=== PATIENT | female | born 1980 | race Caucasian/White ===

== ENCOUNTER → 2017-03-16 | Outpatient (CLI) | payer OTHER ==
[~2017-03-16] MED LIST: AMIT25TA9 PO; CETI10CA PO; CETI10TA20 PO; CIPR500T4 PO; HYDR-3729 PO; HYDR-3816 PO; IBUP-1780 PO; LEVO250T11 PO; METR500T21 PO; NITR-65 PO; OXYB10TA6 PO; PHEN-640 PO; RANI150T15 PO; TAMS0.4C98 PO; [UNRECOGNIZED DRUG - CODE] PO
== END ==
LOC: RAD 14:37
PROVIDERS: ATTEND Urology
DX: Q62.0 Congenital hydronephrosis (principal); Z53.29 Procedure and treatment not carried out because of patient's decision for other reasons

== ENCOUNTER → 2017-03-25 | Outpatient (CLI) | payer OTHER ==
[~2017-03-25] MED LIST changes: +CATHETER FLUSH 10 ML SYR IV PRN; +FUROSEMIDE 40 MG/4 ML INJ (LASIX) IVP ONE
--- NOTE | 2017-03-25 11:06 | Diagnostic Imaging Report ---
INDICATION: Congenital hydronephrosis Scintigraphic imaging is performed posteriorly over the kidneys, ureters and bladder after intravenous administration of 5.4 mCi technetium 99m MAG-3. Patient also received intravenous Lasix at the shelter point of the exam. Comparison is made to study of 03/06/2016. There is prompt perfusion to both kidneys. Peak activity occurs in the left kidney after 540 seconds in the right kidney after 300. There is delay in excretion of activity from the left kidney similar to previous study with prompt washout from the right kidney. After Lasix administration, there is washout of activity from the left kidney as well indicating no obstruction. IMPRESSION: Prolonged accumulation and delayed excretion of activity from the left kidney which may be related to hydronephrosis. There is no evidence of obstruction after Lasix administration. Overall, findings are similar to the previous study. Dictated by: Dictated on workstation # [id number]
== END ==
LOC: CARD 08:55
PROVIDERS: ATTEND Urology
DX: Q62.0 Congenital hydronephrosis (principal)
CPT/HCPCS: 78708

== ENCOUNTER 2017-05-03 07:16 | Emergency (ER) | payer SELFPAY ==
[~2017-05-03] VITALS: Ht 152.4 cm; Wt 75.3 kg
[~2017-05-03 07:16] MED LIST changes: -CATHETER FLUSH 10 ML SYR IV PRN; -FUROSEMIDE 40 MG/4 ML INJ (LASIX) IVP ONE
--- OUTSIDE RECORDS SUMMARY | 2017-05-03 07:23 | XMS REPORT ---
Author FIFI Aparicio Organization eClinicalWorks Address Unknown Phone Unavailable Care Team Providers Care Patcher Helper Name Role Phone FIFI BARBOSA CP Unavailable Allergies No Known Allergies Problems Problem Type Condition Code Onset Dates Condition Status Assessment Irritability R45.4 Active Assessment Seasonal allergic rhinitis, unspecified allergic rhinitis trigger J30.2 Active Assessment Obesity (BMI 30.0-34.9) E66.9 Active Problem Seasonal allergic rhinitis, unspecified allergic rhinitis trigger J30.2 Active Problem S/P hysterectomy Z90.710 Active Problem Adjustment disorder, unspecified type F43.20 Active Problem 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 Assessment S/P hysterectomy Z90.710 Active Problem Obesity (BMI 30.0-34.9) E66.9 Active Problem Irritability R45.4 Active Medications No Known Medications Procedures Procedure Coding System Code Date GONADOTROPIN (FSH) CPT-4 44456 Feb 29, 2016 COMPLETE CBC W/AUTO DIFF WBC CPT-4 36722 Feb 29, 2016 ASSAY THYROID STIM HORMONE CPT-4 01145 Feb 29, 2016 COMPREHEN METABOLIC PANEL CPT-4 19187 Feb 29, 2016 LIPID PANEL CPT-4 13460 Feb 29, 2016 VENIPUNCT, ROUTINE* CPT-4 07417 Feb 29, 2016 Results Name Result Date Reference Range Unit Abnormality Flag ROUTINE VENIPUNCTURE Summary Purpose eClinicalWorks Submission
--- OUTSIDE RECORDS SUMMARY | 2017-05-03 07:23 | XMS REPORT ---
Author FIFI Aparicio [facility] eClinicalWorks Address Unknown Phone Unavailable Care Team Providers Care Medical Billing Coder Name Role Phone FIFI BARBOSA CP Unavailable Allergies No Known Allergies Problems Problem Type Condition Code Onset Dates Condition Status Problem Irregular menstrual cycle 626.4 Active Assessment Encounter for Depo-Provera contraception Z30.42 Active Problem Esophageal reflux 530.81 Active Medications No Known Medications Procedures Procedure Coding System Code Date DEPO PROVERA (150 MG/ML) CPT-4 J1050 May 24, 2015 THER/PROPH/DIAG INJ, SC/IM CPT-4 21401 May 24, 2015 URINE TEST CPT-4 00908 May 24, 2015 Results Name Result Date Reference Range Unit Abnormality Flag TEST, URINE (IN HOUSE) ----RESULTS neg [id number] ----Lot # [id number] ----Control pos [id number] ----Exp date [id number] Summary Purpose eClinicalWorks Submission
--- OUTSIDE RECORDS SUMMARY | 2017-05-03 07:23 | XMS REPORT ---
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
--- OUTSIDE RECORDS SUMMARY | 2017-05-03 07:23 | XMS REPORT ---
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
--- OUTSIDE RECORDS SUMMARY | 2017-05-03 07:23 | XMS REPORT ---
Author Author [facility] Address [address] [place] [address] Care Team Providers Care Hotel Sales Manager Name Role Phone FIFI BARBOSA Unavailable PROBLEMS Type Condition ICD9-CM Code [id number] Code Onset Dates Condition Status SNOMED Code Problem Obesity (BMI 30.0-34.9) E66.9 Active 788619311144269 Problem Anxiety associated with depression F41.8 Active 622170201 Problem Adjustment disorder, unspecified type F43.20 Active 60107092 Problem S/P hysterectomy Z90.710 Active 900814245 Problem Irritability R45.4 Active 93891473 Problem Seasonal allergic rhinitis, unspecified allergic rhinitis trigger J30.2 Active 691155713 Problem 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 285050665 ALLERGIES Substance Reaction Event Type Date Status Iodine Unknown Drug Allergy Jun, Active SOCIAL HISTORY Never Assessed PLAN OF CARE Activity Details Follow Up 6 Months Reason:irritability/effexor f/u VITAL SIGNS Height 60 in 2016-06-12 Weight 169.2 lbs 2016-06-12 Temperature 98.9 degrees Fahrenheit 2016-06-12 Heart Rate 112 bpm 2016-06-12 Respiratory Rate 16 2016-06-12 BMI 33.04 kg/m2 2016-06-12 Blood pressure systolic 126 mmHg 2016-06-12 Blood pressure diastolic 82 mmHg 2016-06-12 MEDICATIONS Medication Instructions Dosage Frequency Start Date End Date Duration Status Zyrtec Allergy 10 MG Orally Once a day 1 tablet 24h Active Ranitidine HCl 150 mg 1 tablet by Oral route 2 times per day Do not fill until patient calls! Oct, Active Clindagel 1 % Externally Once a day 1 application to affected area 24h Jun, Active HydrOXYzine HCl 25 MG Orally every 8 hrs 1 tablet as needed 8h May, Active ProAir HFA 108 (90 Base) MCG/ACT Inhalation 3 times a day 2 puffs as needed 8h Jun, Active Ibuprofen 800 mg take 1 tablet (800 mg) by oral route 3 times per day with food Apr, Active Augmentin 875-125 MG Orally every 12 hrs 1 tablet 12h Jun,Jun 10 day(s) Active Zyrtec-D Allergy & Congestion 5-120 MG Orally Once a day 1 tablet 24h Jan, Active Diflucan 100 mg Orally Once a day- if yeast symptoms develop 1 tablet Jun, Active Venlafaxine HCl 50 mg Orally Twice a day 1 tablet with food 12h May, Active RESULTS No Results PROCEDURES No Known procedures IMMUNIZATIONS No Known Immunizations MEDICAL (GENERAL) HISTORY Type Description Date Medical History endemetriosis Medical History Fibroid and ovarian cyst Medical History Pelvic junction obstruction- stent placed in the left ureter Surgical History Tonsillectomy and adenoids 1995 Surgical History [place] teeth 1997 Surgical History laproscopic surgery- endometriosis 1999 Surgical History section 2004, 2008 Surgical History hysterectomy still has ovaries 06/12/15 Surgical History pelvic junction obstruction surgery-[facility] 12/25/2015 Hospitalization History Surgery(s)/Childbirth(s) only
--- OUTSIDE RECORDS SUMMARY | 2017-05-03 07:23 | XMS REPORT ---
Author Author FIFI BARBOSA Organization eClinicalWorks Address Unknown Phone Unavailable Care Team Providers Care Breaker Layer Name Role Phone FIFI BARBOSA CP Unavailable Allergies No Known Allergies Problems Problem Type Condition Code Onset Dates Condition Status Problem Irregular menstrual cycle 626.4 Active Problem Esophageal reflux 530.81 Active Medications No Known Medications Results No Known Results Summary Purpose eClinicalWorks Submission
--- OUTSIDE RECORDS SUMMARY | 2017-05-03 07:23 | XMS REPORT ---
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
--- OUTSIDE RECORDS SUMMARY | 2017-05-03 07:23 | XMS REPORT ---
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 Zyrtec-D Allergy & Congestion [facility] [address] 5-120 MG Orally Once a day Jan 03, 2016 1 tablet Zyrtec Allergy [facility] [address]-01 10 MG Orally Once a day 1 tablet Clindagel [facility] [address]-79 1 % Externally Once a day Jun 28, 2015 1 application to affected area Procedures Procedure Coding System Code Date INTRAORL-PERIAPICAL 1 FILM 67590 CPT-4 D0220 Feb 18, 2016 LTD ORAL EVALUATION - PROBLEM FOCUS CPT-4 D0140 Feb 18, 2016 Vital Signs Date/Time: Feb 18, 2016 Blood Pressure Diastolic 83 mmHg Blood Pressure Systolic 121 mmHg Results No Known Results Summary Purpose eClinicalWorks Submission
--- OUTSIDE RECORDS SUMMARY | 2017-05-03 07:23 | XMS REPORT ---
Author FIFI Aparicio Organization eClinicalWorks Address Unknown Phone Unavailable Care Team Providers Care Environmental Emergencies Assistant Name Role Phone FIFI BARBOSA CP Unavailable Allergies No Known Allergies Problems Problem Type Condition Code Onset Dates Condition Status Problem Other ganglion and cyst of synovium, tendon, and bursa 727.49 Active Problem Irregular menstrual cycle 626.4 Active Problem Acute upper respiratory infections of unspecified site 465.9 Active Problem Postnasal drip 784.91 Active Problem Abdominal pain, generalized 789.07 Active Problem Esophageal reflux 530.81 Active Problem General counseling for initiation of other contraceptive measures V25.02 Active Problem Routine gynecological examination V72.31 Active Problem Need for prophylactic vaccination and inoculation, Influenza V04.81 Active Problem Unspecified breast screening V76.10 Active Problem Influenza with other respiratory manifestations 487.1 Active Problem Throat pain 784.1 Active Problem Fever, unspecified 780.60 Active Assessment Encounter for Depo-Provera contraception Z30.42 Active Problem Cough 786.2 Active Medications No Known Medications Procedures Procedure Coding System Code Date DEPO PROVERA (150 MG/ML) CPT-4 J1050 Mar 01, 2015 THER/PROPH/DIAG INJ, SC/IM CPT-4 26930 Mar 01, 2015 URINE TEST CPT-4 87744 Mar 01, 2015 Results Name Result Date Reference Range Unit Abnormality Flag TEST, URINE (IN HOUSE) Summary Purpose eClinicalWorks Submission
--- OUTSIDE RECORDS SUMMARY | 2017-05-03 07:24 | XMS REPORT ---
Author Author FIFI BARBOSA [facility] eClinicalWorks Address Unknown Phone Unavailable Care Team Providers Care Partridge Farmer Name Role Phone FIFI BARBOSA CP Unavailable Allergies No Known Allergies Problems Problem Type Condition Code Onset Dates Condition Status Problem Irregular menstrual cycle 626.4 Active Assessment LLQ pain R10.32 Active Problem Esophageal reflux 530.81 Active Assessment Endometriosis N80.9 Active Medications No Known Medications Results No Known Results Summary Purpose eClinicalWorks Submission
--- OUTSIDE RECORDS SUMMARY | 2017-05-03 07:24 | XMS REPORT | Referral Summary ---
Author Author [facility] Organization [facility] Address Unknown Phone Unavailable Care Team Providers Care Server Security Administrator Name Role Phone PROVIDER, NOTINSYSTEM PCP Unavailable Encounter Date(s): 11/06/15 - 11/06/15 [facility] [address] [place], [place] [address] Discharge Disposition: 01-Home or Self Care Attending Physician: Bandar Foley MD Admitting Physician: Bandar Foley MD Vital Signs Most recent to 1 oldest [Reference Range]: Blood Pressure 26/82 mmHg [90-140/60-90 mmHg] *LOW* (11/06/15 12:55 PM) Problem List No data available for this section Allergies, Adverse Reactions, Alerts Substance Reaction Severity Status contrast media Active (iodine-based) Medications ibuprofen 800 mg oral tablet 800 mg 1 tabs, Oral, TID, as needed for pain, # 30 tabs, 0 Refill(s), other reason (Rx) Start Date: 11/06/15 Stop Date: 11/05/16 Status: Ordered Results Hematology Most recent to 1 oldest [Reference Range]: WBC [4.8-10.8 6.2 10*3/uL 10*3/uL] (11/06/15 2:19 PM) RBC [4.00-5.20] 4.83 (11/06/15 2:19 PM) Hgb [12.0-16.0 13.6 gm/dL gm/dL] (11/06/15 2:19 PM) Hct [37.0-47.0 %] 42.4 % (11/06/15 2:19 PM) MCV [82.0-99.0 fL] 87.8 fL (11/06/15 2:19 PM) MCH [27.0-32.0 pg] 28.2 pg (11/06/15 2:19 PM) MCHC [32.0-36.0 32.1 gm/dL gm/dL] (11/06/15 2:19 PM) RDW [11.5-14.5 %] 14.4 % (11/06/15 2:19 PM) Platelet [150-400 241 10*3/uL 10*3/uL] (11/06/15 2:19 PM) MPV [8.8-14.8 fL] 12.0 fL (11/06/15 2:19 PM) Immature 0.2 % Granulocytes (11/06/15:19 PM) [0.0-1.0 %] Neutrophils [51-75 58 % %] (11/06/15 2:19 PM) Lymphocytes [20-46 26 % %] (11/06/15 2:19 PM) Monocytes [4-11 %] 13 % *HI* (11/06/15:19 PM) Eosinophils [0-4 %] 3 % (11/06/15 2:19 PM) Basophils [0-2 %] 0 % (11/06/15 2:19 PM) Neutro Absolute 3.58 10*3 [1.90-7.00 10*3] (11/06/15 2:19 PM) Lymph Absolute 1.62 10*3 [0.80-3.30 10*3] (11/06/15 2:19 PM) [place] Absolute 0.78 10*3 [0.30-1.00 10*3] (11/06/15 2:19 PM) Eos Absolute 0.20 10*3 [0.00-0.50 10*3] (11/06/15 2:19 PM) Baso Absolute 0.02 10*3 [0.00-0.20 10*3] (11/06/15 2:19 PM) Chemistry Most recent to 1 oldest [Reference Range]: Sodium Lvl [135-144 141 mEq/L mEq/L] (11/06/15 2:19 PM) Potassium Lvl 4.1 mEq/L [3.5-5.2 mEq/L] (11/06/15 2:19 PM) Chloride [99-111 109 mEq/L mEq/L] (11/06/15 2:19 PM) CO2 [22-31 mEq/L] 24 mEq/L (11/06/15 2:19 PM) AGAP [3-20] 8 (11/06/15 2:19 PM) BUN [7-19 mg/dL] 20 mg/dL *HI* (11/06/15 2:19 PM) Glucose Lvl [70-99 80 mg/dL mg/dL] (11/06/15 2:19 PM) Creatinine Lvl 1.15 mg/dL [0.57-1.11 mg/dL] *HI* (11/06/15 2:19 PM) eGFR [>60 mL/min] 53 mL/min 1 *ABN* (11/06/15 2:19 PM) Calcium Lvl 9.6 mg/dL [8.9-10.5 mg/dL] (11/06/15 2:19 PM) 1Result Comment: Multiply eGFR results by 1.21 for race. Immunizations No data available for this section Procedures Procedure Date Related Diagnosis Body Site Collection of venous blood by venipuncture 11/06/15 Social History No data available for this section Assessment and Plan No data available for this section
--- OUTSIDE RECORDS SUMMARY | 2017-05-03 07:24 | XMS REPORT ---
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 462856337 Problem Anxiety associated with depression F41.8 Active 674758848 Problem Adjustment disorder, unspecified type F43.20 Active 62146577 Problem Obesity (BMI 30.0-34.9) E66.9 Active 204854198153148 Problem Irritability R45.4 Active 59732092 Problem Seasonal allergic rhinitis, unspecified allergic rhinitis trigger J30.2 Active 946564511 Problem S/P hysterectomy Z90.710 Active 406813424 ALLERGIES Substance Reaction Event Type Date Status Iodine Unknown Drug Allergy Mar, Active SOCIAL HISTORY No smoking Hx information available PLAN OF CARE Activity Details Follow Up prn Reason:TE 18 VITAL SIGNS Height 60 in 2016-03-21 Blood pressure systolic 126 mmHg 2016-03-21 Blood pressure diastolic 70 mmHg 2016-03-21 MEDICATIONS Medication Instructions Dosage Frequency Start Date End Date Duration Status Clindagel 1 % Externally Once a day 1 application to affected area 24h Jun, Active Zyrtec-D Allergy & Congestion 5-120 MG Orally Once a day 1 tablet 24h Jan, Active Amoxicillin 500 MG Orally every 8 hrs 1 tablet 8h 7 days Active Ranitidine HCl 150 mg 1 tablet by Oral route 2 times per day Do not fill until patient calls! Oct, Active Zyrtec Allergy 10 MG Orally Once a day 1 tablet 24h Active RESULTS No Results PROCEDURES Procedure Date Ordered Related Diagnosis Body Site BITEWING - SINGLE FILM Mar 21, 2016 AMALGAM-3 SURFACES PRIMARY/PERM Mar 21, 2016 SURG REMOVAL ERUPTED TOOTH Mar 21, 2016 IMMUNIZATIONS No Known Immunizations
--- OUTSIDE RECORDS SUMMARY | 2017-05-03 07:24 | XMS REPORT ---
Author [facility] Address [address] [place] [address] Care Team Providers Care Veneer Trimmer Name Role Phone FIFI BARBOSA Unavailable PROBLEMS Type Condition ICD9-CM Code [id number] Code Onset Dates Condition Status SNOMED Code Problem Obesity (BMI 30.0-34.9) E66.9 Active 944169840700964 Problem Anxiety associated with depression F41.8 Active 865282275 Problem Adjustment disorder, unspecified type F43.20 Active 90676461 Problem S/P hysterectomy Z90.710 Active 128962889 Problem Irritability R45.4 Active 57816736 Problem Seasonal allergic rhinitis, unspecified allergic rhinitis trigger J30.2 Active 339865565 Problem 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 660956749 ALLERGIES Substance Reaction Event Type Date Status Iodine Unknown Drug Allergy May, Active SOCIAL HISTORY No smoking Hx information available PLAN OF CARE Activity Details Follow Up 3 Weeks Reason:anxiety/depression f/u VITAL SIGNS Height 60 in 2016-05-22 Weight 168.4 lbs 2016-05-22 Temperature 98.9 degrees Fahrenheit 2016-05-22 Heart Rate 68 bpm 2016-05-22 Respiratory Rate 18 2016-05-22 BMI 32.88 kg/m2 2016-05-22 Blood pressure systolic 138 mmHg 2016-05-22 Blood pressure diastolic 82 mmHg 2016-05-22 MEDICATIONS Medication Instructions Dosage Frequency Start Date End Date Duration Status Ibuprofen 800 mg take 1 tablet (800 mg) by oral route 3 times per day with food Apr, Active Venlafaxine HCl 50 MG Orally Twice a day 1 tablet with food 12h May, Active Ranitidine HCl 150 mg 1 tablet by Oral route 2 times per day Do not fill until patient calls! Oct, Active HydrOXYzine HCl 25 MG Orally every 8 hrs 1 tablet as needed 8h May, Active Clindagel 1 % Externally Once a day 1 application to affected area 24h 25 Feb, 2016 Active Zyrtec Allergy 10 MG Orally Once a day 1 tablet 24h Active Zyrtec-D Allergy & Congestion 5-120 MG Orally Once a day 1 tablet 24h Jan, Active RESULTS No Results PROCEDURES Procedure Date Ordered Related Diagnosis Body Site Office Visit, Est Pt., Level 3 May 22, 2016 IMMUNIZATIONS No Known Immunizations
--- OUTSIDE RECORDS SUMMARY | 2017-05-03 07:24 | XMS REPORT | Referral Summary ---
Author Author [facility] Organization [facility] Address Unknown Phone Unavailable Care Team Providers Care Internet Salesperson Name Role Phone PROVIDER, NOTINSYSTEM PCP Unavailable Encounter [facility] [id number] Date(s): 03/06/16 - 03/06/16 [facility] [address] [place], [place] [address] Discharge Diagnosis: Congenital hydronephrosis Discharge Disposition: 01-Home or Self Care Attending Physician: Bandar Foley MD Admitting Physician: Bandar Foley MD Vital Signs Most recent to 1 oldest [Reference Range]: Peripheral Pulse 72 bpm Rate [60-100 bpm] (03/06/16 10:26 AM) Blood Pressure 116/88 mmHg [90-140/60-90 mmHg] (03/06/16 10:26 AM) Problem List Condition Effective Dates Status Health Status Informant Acute Active pain(Confirmed) At risk of pressure Active sore(Confirmed) GERD Active patient (gastroesophageal reflux disease)(Confirmed) Obesity(Confirmed) Active patient Allergies, Adverse Reactions, Alerts Substance Reaction Severity Status contrast media Active (iodine-based) Medications Flomax 0.4 mg oral capsule 0.4 mg 1 caps, Oral, Daily, # 30 caps, 0 Refill(s) Start Date: 01/17/16 Status: Ordered HYDROcodone-acetaminophen 5 mg-325 mg oral tablet tabs, Oral, q6hr, 0 Refill(s) Start Date: 01/17/16 Status: Ordered ibuprofen 800 mg oral tablet 800 mg 1 tabs, Oral, TID, as needed for pain, # 30 tabs, 0 Refill(s), other reason (Rx) Start Date: 11/06/15 Stop Date: 11/05/16 Status: Ordered oxybutynin 0 Refill(s) Start Date: 01/17/16 Status: Ordered Pyridium Oral, TIDPC, 0 Refill(s) Start Date: 01/17/16 Status: Ordered Tylenol Extra Strength 1,000 mg, Oral, q6hr, as needed for pain, 0 Refill(s) Start Date: 12/25/15 Status: Ordered Zantac 150 150 mg, Oral, Daily, 0 Refill(s) Start Date: 12/25/15 Status: Ordered Results No data available for this section Immunizations No data available for this section Procedures Procedure Date Related Diagnosis Body Site Cystoscopy Retrograde Pyelogram (Left)1 12/25/15 Pyeloplasty Robotic2 12/25/15 ADNOIDS C SECTION3 CYSTO HYSTERECOMY TONSILS 1auto-populated from documented surgical case 2auto-populated from documented surgical case 3X2 Social History Social History Type Response Smoking Status Never smoker Assessment and Plan Extracted from: Title: Office Visit Note Author: Bandar Foley MD Date: 03/06/16 Assessment/Plan Congenital hydronephrosis Status post left lower moiety pyeloplasty, patientasymptomatic. Renal scan appears to showgood drainagepost Lasix administration. She did not develop any symptomsof pain during the scan. I will have her follow up in 6 months with a Lasix renal scan again. If she has any symptoms prior to thatadvised her to come back sooner.
--- OUTSIDE RECORDS SUMMARY | 2017-05-03 07:24 | XMS REPORT ---
Author FIFI Aparicio Organization [employer] Address Unknown Phone Unavailable Care Team Providers Care Cloth Folder Hand Name Role Phone FIFI BARBOSA CP Unavailable Allergies, Adverse Reactions, Alerts Substance Reaction Event Type N.K.D.A. Info Not Available Non Drug Allergy Problems Problem Type Condition Code Onset Dates Condition Status Problem Irregular menstrual cycle 626.4 Active Assessment Endometriosis N80.9 Active Problem Esophageal reflux 530.81 Active Assessment GERD (gastroesophageal reflux disease) K21.9 Active Assessment LLQ pain R10.32 Active Medications Medication Code System Code Instructions Start Date End Date Status Dosage Omeprazole [facility] [address]-52 20 MG Orally Once a day Apr 12, 2015 2 capsules Ibuprofen [facility] [address]-85 800 mg May 03, 2014 take 1 tablet ( 800 mg) by oral route 3 times per day with food Ranitidine HCl [facility] [address]-33 150 mg October 14, 2013 1 tablet by Oral route 2 times per day Do not fill until patient calls! cetirizine [facility] [address]-16 10 mg Feb 14, 2014 take 1 tablet (10 mg) by oral route once daily daily Pseudoephedrine HCl [facility] [address]-99 60 mg Feb 14, 2014 1 tablet by Oral route every 6 hours PRN Amitriptyline HCl [facility] [address]-05 25 MG Orally Once a day Apr 12, 2015 1 tablet Procedures Procedure Coding System Code Date Office Visit, Est Pt., Level 3 CPT-4 31397 Apr 12, 2015 Vital Signs Date/Time: Apr 12, 2015 Temperature 98.0 F Weight 156 lbs Height 60 in BMI 30.46 Index Blood Pressure Diastolic 80 mmHg Blood Pressure Systolic 140 mmHg Cardiac Monitoring Heart Rate 90 bpm Results No Known Results Summary Purpose [employer] Submission
--- OUTSIDE RECORDS SUMMARY | 2017-05-03 07:24 | XMS REPORT ---
Author Author KARL MONTANO [facility] Address Unknown Care Team Providers Care Financial Aid Manager Name Role Phone KARL MONTANO Unavailable PROBLEMS Type Condition ICD9-CM Code [id number] Code Onset Dates Condition Status SNOMED Code Problem Obesity (BMI 30.0-34.9) E66.9 Active 787575739677128 Problem Anxiety associated with depression F41.8 Active 645622818 Problem Adjustment disorder, unspecified type F43.20 Active 82586459 Problem S/P hysterectomy Z90.710 Active 505912800 Problem Irritability R45.4 Active 96310450 Problem Seasonal allergic rhinitis, unspecified allergic rhinitis trigger J30.2 Active 069280296 Problem 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 165122674 ALLERGIES Substance Reaction Event Type Date Status Iodine Unknown Drug Allergy Apr, Active SOCIAL HISTORY No smoking Hx information available PLAN OF CARE Activity Details Follow Up prn Reason:hygeine VITAL SIGNS Height 60 in 2016-04-22 Blood pressure systolic 144 mmHg 2016-04-22 Blood pressure diastolic 92 mmHg 2016-04-22 MEDICATIONS Medication Instructions Dosage Frequency Start Date End Date Duration Status Clindagel 1 % Externally Once a day 1 application to affected area 24h Jun, Active Ibuprofen 800 mg take 1 tablet (800 mg) by oral route 3 times per day with food Apr, Active Zyrtec-D Allergy & Congestion 5-120 MG Orally Once a day 1 tablet 24h Jan, Active Zyrtec Allergy 10 MG Orally Once a day 1 tablet 24h Active Ranitidine HCl 150 mg 1 tablet by Oral route 2 times per day Do not fill until patient calls! Oct, Active Tramadol HCl 50 MG Orally every 6 hrs 1 tablet as needed 6h 4 days Active RESULTS No Results PROCEDURES Procedure Date Ordered Related Diagnosis Body Site TX COMPS - UNUSUL CIRCUMSTANCES RPT Apr 22, 2016 IMMUNIZATIONS No Known Immunizations
--- OUTSIDE RECORDS SUMMARY | 2017-05-03 07:24 | XMS REPORT ---
Author [facility] Address Unknown Phone Unavailable Care Team Providers Care Media Theorist And Author Of Name Role Phone DARY MARES Unavailable Unavailable PROBLEMS Type Condition ICD9-CM Code [id number] Code Onset Dates Condition Status SNOMED Code Problem Obesity (BMI 30.0-34.9) E66.9 Active 086760290881829 Problem Anxiety associated with depression F41.8 Active 721615606 Problem Adjustment disorder, unspecified type F43.20 Active 93517762 Problem S/P hysterectomy Z90.710 Active 103710735 Problem Irritability R45.4 Active 19764772 Problem Seasonal allergic rhinitis, unspecified allergic rhinitis trigger J30.2 Active 562692598 Problem 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
--- OUTSIDE RECORDS SUMMARY | 2017-05-03 07:24 | XMS REPORT | Referral Summary ---
Author Author [facility] Organization [facility] Address Unknown Phone Unavailable Care Team Providers Care Supplies Packer Name Role Phone No PCP, Pt States PCP Encounter VC Date(s): 12/25/15 - 12/27/15 [facility] [address], [place] [address] Discharge Diagnosis: Duplicated collecting system Discharge Diagnosis: Hydronephrosis with ureteropelvic junction (UPJ) obstruction Discharge Disposition: 01-Home or Self Care Attending Physician: Bandar Foley MD Admitting Physician: Bandar Foley MD Vital Signs Most recent to 1 oldest [Reference Range]: Temperature Oral 37.0 degC [35.8-37.3 degC] (12/27/15 7:34 AM) Temperature Temporal 36.4 degC Artery [36.3-37.8 (12/25/15 7:40 PM) degC] Peripheral Pulse 64 bpm Rate [60-100 bpm] (12/27/15 7:34 AM) Heart Rate Monitored 88 bpm [60-100 bpm] (12/25/15 7:00 PM) Respiratory Rate 18 br/min [14-20 br/min] (12/27/15 7:34 AM) Blood Pressure 135/78 mmHg [90-140/60-90 mmHg] (12/27/15 7:34 AM) Mean Arterial 86 mmHg Pressure, Cuff (12/25/15 6:45 PM) SpO2 99 % (12/27/15 7:34 AM) Problem List Condition Effective Dates Status Health Status Informant Acute Active pain(Confirmed) At risk of pressure Active sore(Confirmed) GERD Active patient (gastroesophageal reflux disease)(Confirmed) Allergies, Adverse Reactions, Alerts Substance Reaction Severity Status contrast media Active (iodine-based) Medications ibuprofen 800 mg oral tablet 800 mg 1 tabs, Oral, TID, as needed for pain, # 30 tabs, 0 Refill(s), other reason (Rx) Start Date: 11/06/15 Stop Date: 11/05/16 Status: Ordered Tylenol Extra Strength 1,000 mg, Oral, q6hr, as needed for pain, 0 Refill(s) Start Date: 12/25/15 Status: Ordered Zantac 150 150 mg, Oral, Daily, 0 Refill(s) Start Date: 12/25/15 Status: Ordered Results Hematology Most recent to 1 oldest [Reference Range]: WBC [4.8-10.8 10.4 10*3/uL 10*3/uL] (12/26/15 3:48 AM) RBC [4.00-5.20] 4.36 (12/26/15 3:48 AM) Hgb [12.0-16.0 12.4 gm/dL gm/dL] (12/26/15 3:48 AM) Hct [37.0-47.0 %] 38.8 % (12/26/15 3:48 AM) MCV [82.0-99.0 fL] 89.0 fL (12/26/15 3:48 AM) MCH [27.0-32.0 pg] 28.4 pg (12/26/15 3:48 AM) MCHC [32.0-36.0 32.0 gm/dL gm/dL] (12/26/15 3:48 AM) RDW [11.5-14.5 %] 13.3 % (12/26/15 3:48 AM) Platelet [150-400 222 10*3/uL 10*3/uL] (12/26/15 3:48 AM) MPV [9.4-12.4 fL] 11.6 fL (12/26/15 3:48 AM) Immature 0.1 % Granulocytes (12/26/15 3:48 AM) [0.0-1.0 %] Neutrophils [51-75 86 % %] *HI* (12/26/15 3:48 AM) Lymphocytes [20-46 6 % %] *LOW* (12/26/15 3:48 AM) Monocytes [4-11 %] 8 % (12/26/15 3:48 AM) Eosinophils [0-4 %] 0 % (12/26/15 3:48 AM) Basophils [0-2 %] 0 % (12/26/15 3:48 AM) Neutro Absolute 8.96 10*3 [1.90-7.00 10*3] *HI* (12/26/15 3:48 AM) Lymph Absolute 0.64 10*3 [0.80-3.30 10*3] *LOW* (12/26/15 3:48 AM) [place] Absolute 0.81 10*3 [0.30-1.00 10*3] (12/26/15 3:48 AM) Eos Absolute 0.00 10*3 [0.00-0.50 10*3] (12/26/15 3:48 AM) Baso Absolute 0.00 10*3 [0.00-0.20 10*3] (12/26/15 3:48 AM) Chemistry Most recent to 1 oldest [Reference Range]: Sodium Lvl [136-144 137 mEq/L mEq/L] (12/27/15 4:37 AM) Potassium Lvl 4.1 mEq/L [3.6-5.1 mEq/L] (12/27/15 4:37 AM) Chloride [99-109 106 mEq/L mEq/L] (12/27/15 4:37 AM) CO2 [22-32 mEq/L] 25 mEq/L (12/27/15 4:37 AM) AGAP [3-20] 6 (12/27/15 4:37 AM) BUN [4-20 mg/dL] 12 mg/dL (12/27/15 4:37 AM) Glucose Lvl [70-100 87 mg/dL mg/dL] (12/27/15 4:37 AM) Creatinine Lvl 0.98 mg/dL [0.44-1.03 mg/dL] (12/27/15 4:37 AM) eGFR [>60] >60 1 (12/27/15 4:37 AM) Calcium Lvl 8.0 mg/dL [8.6-10.0 mg/dL] *LOW* (12/27/15 4:37 AM) Magnesium Lvl 1.5 mg/dL [1.8-2.5 mg/dL] *LOW* (8/24/16 3:48 AM) Phosphorus [2.4-4.7 2.5 mg/dL 2 mg/dL] (12/26/15 3:48 AM) Blood Glucose, 74 mg/dL Capillary [70-100 (12/25/15 11:15 AM) mg/dL] 1Result Comment: Multiply eGFR results by 1.21 for race. 2Result Comment: High dosages of liposomal Amphotericin B (AmBisome) therapy or other drug preparations that use a liposomal envelope to facilitate drug delivery may cause falsely elevated results for phosphorus. Blood Bank Results Most recent to 1 oldest [Reference Range]: ABO/Rh O POS (12/25/15 11:16 AM) Antibody Screen Tube NEG (12/25/15 11:16 AM) Microbiology Reports TEST: Urine Culture STATUS: Auth (Verified) BODY SITE: SOURCE: Urine COLLECTED DATE/TIME: 12/25/15 11:06 AM Urine Culture Normal urogenital/skin osmin present Immunizations No data available for this section Procedures Procedure Date Related Diagnosis Body Site Cystoscopy Retrograde Pyelogram (Left)1 12/25/15 Pyeloplasty Robotic2 12/25/15 ADNOIDS C SECTION3 CYSTO HYSTERECOMY TONSILS 1auto-populated from documented surgical case 2auto-populated from documented surgical case 3X2 Social History Social History Type Response Smoking Status Never smoker Assessment and Plan No data available for this section
--- OUTSIDE RECORDS SUMMARY | 2017-05-03 07:24 | XMS REPORT ---
Author Author KARL MONTANO [facility] Address Unknown Care Team Providers Care Corn Lab Technician Name Role Phone KARL MONTANO Unavailable PROBLEMS Type Condition ICD9-CM Code [id number]-CU Code Onset Dates Condition Status SNOMED Code Problem Obesity (BMI 30.0-34.9) E66.9 Active 932742132970163 Problem Anxiety associated with depression F41.8 Active 734234525 Problem Adjustment disorder, unspecified type F43.20 Active 34622119 Problem S/P hysterectomy Z90.710 Active 937629492 Problem Irritability R45.4 Active 57586750 Problem Seasonal allergic rhinitis, unspecified allergic rhinitis trigger J30.2 Active 157202166 Problem 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 Oct, Active Tramadol HCl 50 MG Orally every 6 hrs 1 tablet as needed 6h 4 days Active Clindagel 1 % Externally Once a day 1 application to affected area 24h Jun, Active Zyrtec-D Allergy & Congestion 5-120 MG Orally Once a day 1 tablet 24h Jan, Active Zyrtec Allergy 10 MG Orally Once a day 1 tablet 24h Active Ibuprofen 800 mg take 1 tablet (800 mg) by oral route 3 times per day with food Apr, Active RESULTS No Results PROCEDURES Procedure Date Ordered Related Diagnosis Body Site SURG REMOVAL ERUPTED TOOTH Apr 17, 2016 IMMUNIZATIONS No Known Immunizations
--- OUTSIDE RECORDS SUMMARY | 2017-05-03 07:25 | XMS REPORT | Referral Summary ---
Author Author [facility] Organization [facility] Address Unknown Phone Unavailable Care Team Providers Care Commercial Loan Coordinator Name Role Phone PROVIDER, NOTINSYSTEM PCP Unavailable Encounter [facility] [id number] Date(s): 01/17/16 - 01/17/16 [facility] [address] [place], [place] [address] Discharge Diagnosis: Hydronephrosis, left Discharge Disposition: 01-Home or Self Care Attending Physician: Bandar Foley MD Admitting Physician: Bandar Foley MD Vital Signs Most recent to 1 oldest [Reference Range]: Peripheral Pulse 84 bpm Rate [60-100 bpm] (01/17/16 8:52 AM) Blood Pressure 128/82 mmHg [90-140/60-90 mmHg] (01/17/16 8:52 AM) Problem List Condition Effective Dates Status [...] Procedures Procedure Date Related Diagnosis Body Site Cystourethroscopy, with removal of foreign 01/17/16 body, calculus, or ureteral stent from urethra or bladder (separate procedure); simple Cystoscopy Retrograde Pyelogram (Left)1 12/25/15 Pyeloplasty Robotic2 12/25/15 ADNOIDS C SECTION3 CYSTO HYSTERECOMY TONSILS 1auto-populated from documented surgical case 2auto-populated from documented surgical case 3X2 Social History Social History Type Response Smoking Status Never smoker Assessment and Plan Extracted from: Title: Office Visit Note Author: Bandar Foley MD Date: 01/17/16 Assessment/Plan Hydronephrosis, left Flexible cystoscopy was performedand the left ureteral stent was pulled outusing flexible grasperwhich came outintact. Patient tolerated the procedure well. She'll follow-up with me in 6 weeks with a Lasix renal scan. If she have any symptoms prior to that advised her to call meto see me sooner.
--- OUTSIDE RECORDS SUMMARY | 2017-05-03 07:26 | XMS REPORT | Continuity of Care Document ---
Author Author [facility] Address Unknown Phone Unavailable Allergies Active Description Code Type Severity Reaction Onset Reported/Identified Relationship to Patient Clinical Status Yes No Known Drug Allergies [id number] Drug Allergy Unknown N/A 06/06/2015 Yes iodine [id number] Drug Allergy Moderate MOUTH ITCHING, 09/03/2015 Medications There is no data. Problems Date Dx Coded Attending Type Code Diagnosis Diagnosed By 11/11/2007 296.90 MOOD DISORDER 11/11/2007 300.00 ANXIETY 11/11/2007 VAL OCHOA DO 296.90 MOOD DISORDER 11/11/2007 BLAYNE OCHOA DOA K 300.00 ANXIETY 11/11/2007 VAL OCHOA DO K 296.90 MOOD DISORDER 11/11/2007 BLAYNE OCHOA DOA K 300.00 ANXIETY 11/11/2007 MONICA BARBOSA APRN 296.90 MOOD DISORDER 11/11/2007 MONICA BARBOSA APRN 300.00 ANXIETY 11/11/2007 VAL OCHOA DO K 296.90 MOOD DISORDER 11/11/2007 BLAYNE OCHOA DOA K 300.00 ANXIETY 11/11/2007 MONICA BARBOSA APRN 296.90 MOOD DISORDER 11/11/2007 MONICA BARBOSA APRN 300.00 ANXIETY 11/11/2007 MONICA BARBOSA APRN 296.90 MOOD DISORDER 11/11/2007 MONICA BARBOSA APRN 300.00 ANXIETY 11/11/2007 BLAYNE OCHOA DOA K 296.90 MOOD DISORDER 11/11/2007 BLAYNE OCHOA DOA K 300.00 ANXIETY 11/26/2007 691.8 DERMATITIS ATOPIC ECZEMA 11/26/2007 VAL OCHOA DO K 691.8 DERMATITIS ATOPIC ECZEMA 11/26/2007 BLAYNE OCHOA DOA K 691.8 DERMATITIS ATOPIC ECZEMA 11/26/2007 MONICA BARBOSA APRN 691.8 DERMATITIS ATOPIC ECZEMA 11/26/2007 VAL OCHOA DO K 691.8 DERMATITIS ATOPIC ECZEMA 11/26/2007 MONICA BARBOSA APRN 691.8 DERMATITIS ATOPIC ECZEMA 11/26/2007 MONICA BARBOSA APRN 691.8 DERMATITIS ATOPIC ECZEMA 11/26/2007 OCHOA DO VAL K 691.8 DERMATITIS ATOPIC ECZEMA 06/18/2009 079.99 UNSPECIFIED VIRAL INFECTION IN CONDITIONS CLASSIFIED ELSEWHERE AND OF UNSPECIFIED SITE 06/18/2009 380.10 Infective Otitis Externa, Unspecified 06/18/2009 388.70 earache 06/18/2009 462 Sore Throat 06/18/2009 786.2 Cough 06/18/2009 OCHOA DO, VAL K 079.99 UNSPECIFIED VIRAL INFECTION IN CONDITIONS CLASSIFIED ELSEWHERE AND OF UNSPECIFIED SITE 06/18/2009 DON LOVING VAL K 380.10 Infective Otitis Externa, Unspecified 06/18/2009 OCHOA DOBLAYNEA K 388.70 earache 06/18/2009 OCHOA DO VAL K 462 Sore Throat 06/18/2009 OCHOA DO VAL K 786.2 Cough 06/18/2009 OCHOA DO VAL K 079.99 UNSPECIFIED VIRAL INFECTION IN CONDITIONS CLASSIFIED ELSEWHERE AND OF UNSPECIFIED SITE 06/18/2009 OCHOA DO VAL K 380.10 Infective Otitis Externa, Unspecified 06/18/2009 DON DOBLAYNEA K 388.70 earache 06/18/2009 OCHOA DO, VAL K 462 Sore Throat 06/18/2009 OCHOA DO VAL K 786.2 Cough 06/18/2009 MONICA BARBOSA APRN 079.99 UNSPECIFIED VIRAL INFECTION IN CONDITIONS CLASSIFIED ELSEWHERE AND OF UNSPECIFIED SITE 06/18/2009 MONICA BARBOSA APRN 380.10 Infective Otitis Externa, Unspecified 06/18/2009 MONICA BARBOSA APRN 388.70 earache 06/18/2009 MONICA BARBOSA APRN 462 Sore Throat 06/18/2009 MONICA BARBOSA APRN 786.2 Cough 06/18/2009 OCHOA DO VAL K 079.99 UNSPECIFIED VIRAL INFECTION IN CONDITIONS CLASSIFIED ELSEWHERE AND OF UNSPECIFIED SITE 06/18/2009 OCHOA DO VAL K 380.10 Infective Otitis Externa, Unspecified 06/18/2009 BLAYNE OCHOA DOA K 388.70 earache 06/18/2009 OCHOA DO VAL K 462 Sore Throat 06/18/2009 OCHOA DO, VAL K 786.2 Cough 06/18/2009 BARBOSA 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 OPERATORMONICA Medina J 079.99 UNSPECIFIED VIRAL INFECTION IN CONDITIONS CLASSIFIED ELSEWHERE AND OF UNSPECIFIED SITE 06/18/2009 BARBOSAMONICA FLORES APRN 380.10 Infective Otitis Externa, Unspecified 06/18/2009 MONICA BARBOSA APRN 388.70 earache 06/18/2009 BARBOSA 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 OPERATORMONICA Medina 462 Sore Throat 06/18/2009 BARBOSA 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 OPERATORMONICA Medina 786.2 Cough 06/18/2009 BARBOSA 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 OPERATORMALIKA MedinaFER J 079.99 UNSPECIFIED VIRAL INFECTION IN CONDITIONS CLASSIFIED ELSEWHERE AND OF UNSPECIFIED SITE 06/18/2009 MONICA BARBOSA APRN 380.10 Infective Otitis Externa, Unspecified 06/18/2009 MONICA BARBOSA APRN 388.70 earache 06/18/2009 BARBOSA MONICA SANTANA 462 Sore Throat 06/18/2009 BARBOSA 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 OPERATORMONICA Medina 786.2 Cough 06/18/2009 OCHOA DOBLAYNEA K 079.99 UNSPECIFIED VIRAL INFECTION IN CONDITIONS CLASSIFIED ELSEWHERE AND OF UNSPECIFIED SITE 06/18/2009 DON LOVING VAL K 380.10 Infective Otitis Externa, Unspecified 06/18/2009 DON LOVING VAL K 388.70 earache 06/18/2009 DON LOVING VAL K 462 Sore Throat 06/18/2009 BLAYNE OCHOA DOA K 786.2 Cough 08/12/2010 478.19 Other Diseases Of Nasal Cavity And Sinuses 08/12/2010 486 Pneumonia Organism Unspecified 08/12/2010 BLAYNE OCHOA DOA K 478.19 Other Diseases Of Nasal Cavity And Sinuses 08/12/2010 OCHOA DO VAL K 486 Pneumonia Organism Unspecified 08/12/2010 OCHOA DO VAL K 478.19 Other Diseases Of Nasal Cavity And Sinuses 08/12/2010 OCHOA DO VAL K 486 Pneumonia Organism Unspecified 08/12/2010 BARBOSAMONICA FLORES APRN 478.19 Other Diseases Of Nasal Cavity And Sinuses 08/12/2010 MONICA BARBOSA APRN 486 Pneumonia Organism Unspecified 08/12/2010 VAL OCHOA DO 478.19 Other Diseases Of Nasal Cavity And Sinuses 08/12/2010 BLAYNE OCHOA DOA K 486 Pneumonia Organism Unspecified 08/12/2010 MONICA BARBOSA APRN 478.19 Other Diseases Of Nasal Cavity And Sinuses 08/12/2010 MONICA BARBOSA APRN 486 Pneumonia Organism Unspecified 08/12/2010 MONICA BARBOSA APRN 478.19 Other Diseases Of Nasal Cavity And Sinuses 08/12/2010 MONICA BARBOSA APRN 486 Pneumonia Organism Unspecified 08/12/2010 OCHOA DOBLAYNEA K 478.19 Other Diseases Of Nasal Cavity And Sinuses 08/12/2010 OCHOA DOBLAYNEA K 486 Pneumonia Organism Unspecified 01/16/2011 381.10 Otitis Media Chronic Serous 01/16/2011 477.0 ALLERGIC RHINITIS - POLLEN 01/16/2011 OCHOA DO VAL K 381.10 Otitis Media Chronic Serous 01/16/2011 OCHOA DOBLAYNEA K 477.0 ALLERGIC RHINITIS - POLLEN 01/16/2011 OCHOA DOBLAYNEA K 381.10 Otitis Media Chronic Serous 01/16/2011 OCHOA DO VAL K 477.0 ALLERGIC RHINITIS - POLLEN 01/16/2011 MONICA BARBOSA APRN 381.10 Otitis Media Chronic Serous 01/16/2011 MONICA BARBOSA APRN 477.0 ALLERGIC RHINITIS - POLLEN 01/16/2011 OCHOA DO, VAL K 381.10 Otitis Media Chronic Serous 01/16/2011 OCHOA DOBLAYNEA K 477.0 ALLERGIC RHINITIS - POLLEN 01/16/2011 MONICA BARBOSA APRN 381.10 Otitis Media Chronic Serous 01/16/2011 MONICA BARBOSA APRN 477.0 ALLERGIC RHINITIS - POLLEN 01/16/2011 MONICA BARBOSA APRN 381.10 Otitis Media Chronic Serous 01/16/2011 MONICA BARBOSA APRN 477.0 ALLERGIC RHINITIS - POLLEN 01/16/2011 OCHOA DO VAL K 381.10 Otitis Media Chronic Serous 01/16/2011 OCHOA DO VAL K 477.0 ALLERGIC RHINITIS - POLLEN 04/01/2011 461.9 SINUSITIS ACUTE 04/01/2011 OCHOA DOBLAYNEA K 461.9 SINUSITIS ACUTE 04/01/2011 OCHOA DO VAL K 461.9 SINUSITIS ACUTE 04/01/2011 MONICA BARBOSA APRN 461.9 SINUSITIS ACUTE 04/01/2011 OCHOA DO VAL K 461.9 SINUSITIS ACUTE 04/01/2011 MONICA BARBOSA APRN 461.9 SINUSITIS ACUTE 04/01/2011 MONICA BARBOSA APRN 461.9 SINUSITIS ACUTE 04/01/2011 OCHOA DO VAL K 461.9 SINUSITIS ACUTE 12/21/2012 465.9 UPPER RESPIRATORY INFECTION 12/21/2012 OCHOA DO, VAL K 465.9 UPPER RESPIRATORY INFECTION 12/21/2012 OCHOA DO, VAL K 465.9 UPPER RESPIRATORY INFECTION 12/21/2012 MONICA BARBOSA APRN 465.9 UPPER RESPIRATORY INFECTION 12/21/2012 OCHOA DO, VAL K 465.9 UPPER RESPIRATORY INFECTION 12/21/2012 MONICA BARBOSA APRN 465.9 UPPER RESPIRATORY INFECTION 12/21/2012 MONICA BARBOSA APRN 465.9 UPPER RESPIRATORY INFECTION 12/21/2012 OCHOA DO, VAL K 465.9 UPPER RESPIRATORY INFECTION 10/14/2013 OCHOA DO, VAL K 530.81 GERD 10/14/2013 OCHOA DO, VAL K 784.91 POSTNASAL DRIP 10/14/2013 OCHOA DO, VAL K 789.07 ABDOMINAL PAIN GENERALIZED 10/14/2013 OCHOA DO, VAL K 530.81 GERD 10/14/2013 OCHOA DO, VAL K 784.91 POSTNASAL DRIP 10/14/2013 OCHOA DO, VAL K 789.07 ABDOMINAL PAIN GENERALIZED 10/14/2013 MONICA BARBOSA APRN 530.81 GERD 10/14/2013 BARBOSAMONICA FLORES APRN 784.91 POSTNASAL DRIP 10/14/2013 MONICA BARBOSA APRN 789.07 ABDOMINAL PAIN GENERALIZED 10/14/2013 OCHOA DO, VAL K 530.81 GERD 10/14/2013 OCHOA DO, VAL K 784.91 POSTNASAL DRIP 10/14/2013 OCHOA DO, VAL K 789.07 ABDOMINAL PAIN GENERALIZED 10/14/2013 MONICA BARBOSA APRN 530.81 GERD 10/14/2013 BARBOSA MONICA SANTANA 784.91 POSTNASAL DRIP 10/14/2013 MONICA BARBOSA APRN 789.07 ABDOMINAL PAIN GENERALIZED 10/14/2013 MONICA BARBOSA APRN 530.81 GERD 10/14/2013 MONICA BARBOSA APRN 784.91 POSTNASAL DRIP 10/14/2013 MONICA BARBOSA APRN 789.07 ABDOMINAL PAIN GENERALIZED 10/14/2013 VAL OCHOA DO 530.81 GERD 10/14/2013 VAL OCHOA DO K 784.91 POSTNASAL DRIP 10/14/2013 VAL OCHOA DO K 789.07 ABDOMINAL PAIN GENERALIZED 12/31/2013 VAL OCHOA DO K 727.49 BURSAL CYST 12/31/2013 MONICA BARBOSA APRN 727.49 BURSAL CYST 12/31/2013 VAL OCHOA DO 727.49 BURSAL CYST 12/31/2013 MONICA BARBOSA APRN 727.49 BURSAL CYST 12/31/2013 MONICA BARBOSA APRN 727.49 BURSAL CYST 12/31/2013 VAL OCHOA DO 727.49 BURSAL CYST 01/19/2014 MONICA BARBOSA APRN 626.4 irregular length of menstrual periods 01/19/2014 MONICA BARBOSA APRN V25.02 Contraceptives 01/19/2014 MONICA BARBOSA APRN V72.31 ROUTINE PELVIC EXAM 01/19/2014 MONICA BARBOSA APRN V76.10 visit for: screening exam malignant neoplasm breast 01/19/2014 VAL OCHOA DO 626.4 irregular length of menstrual periods 01/19/2014 VAL OCHOA DO V25.02 Contraceptives 01/19/2014 VAL OCHOA DO V72.31 ROUTINE PELVIC EXAM 01/19/2014 VAL OCHOA DO V76.10 visit for: screening exam malignant neoplasm breast 01/19/2014 MONICA BARBOSA APRN 626.4 irregular length of menstrual periods 01/19/2014 MONICA BARBOSA APRN V25.02 Contraceptives 01/19/2014 MONICA BARBOSA APRN V72.31 ROUTINE PELVIC EXAM 01/19/2014 MONICA BARBOSA APRN V76.10 visit for: screening exam malignant neoplasm breast 01/19/2014 MONICA BARBOSA APRN 626.4 irregular length of menstrual periods 01/19/2014 MONICA BARBOSA APRN V25.02 Contraceptives 01/19/2014 MONICA BARBOSA APRN V72.31 ROUTINE PELVIC EXAM 01/19/2014 MONICA BARBOSA APRN V76.10 visit for: screening exam malignant neoplasm breast 01/19/2014 VAL OCHOA DO 626.4 irregular length of menstrual periods 01/19/2014 VAL OCHOA DO V25.02 Contraceptives 01/19/2014 VAL OCHOA DO V72.31 ROUTINE PELVIC EXAM 01/19/2014 VAL OCHOA DO V76.10 visit for: screening exam malignant neoplasm breast 02/14/2014 MONICA BARBOSA APRN V04.81 FLU SHOT 02/14/2014 MONICA BARBSOA APRN V04.81 FLU SHOT 02/14/2014 VAL OCHOA DO V04.81 FLU SHOT 05/03/2014 VAL OCHOA DO 487.1 INFLUENZA WITH OTHER RESPIRATORY MANIFESTATIONS 05/03/2014 VAL OCHOA DO 780.60 FEVER UNSPECIFIED 05/03/2014 VAL OCHOA DO 784.1 THROAT PAIN 05/03/2014 VAL OCHOA DO 786.2 COUGH 05/07/2015 MONICA BARBOSA APRN Ot N83.20 05/07/2015 MONICA BARBOSA APRN Ot N83.20 05/30/2015 MONICA BARBOSA APRN Ot N83.20 06/13/2015 HEATHER MOONEY DO Ot 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 06/13/2015 HEATHER MOONEY DO Ot N32.89 OTHER SPECIFIED DISORDERS OF BLADDER 06/13/2015 HEATHER MOONEY DO Ot N80.9 ENDOMETRIOSIS, UNSPECIFIED 06/13/2015 HEATHER MOONEY DO Ot N83.0 FOLLICULAR CYST OF OVARY 06/13/2015 HEATHER MOONEY DO Ot N83.8 OTH NONINFLAMMATORY DISORD OF OVARY, FAL 06/13/2015 HEATHER MOONEY DO Ot N94.6 DYSMENORRHEA, UNSPECIFIED 06/13/2015 MOONEY DO, HEATHER C Ot Z23 ENCOUNTER FOR IMMUNIZATION 06/17/2015 MOONEY DO, HEATHER C Ot N80.9 06/17/2015 MOONEY DO, HEATHER C Ot N94.6 06/17/2015 MOONEY DO, HEATHER C Ot Z01.811 06/17/2015 MOONEY DO, HEATHER C Ot Z11.2 06/17/2015 ISRAEL VELASQUEZ DO Ot N39.0 URINARY TRACT INFECTION, SITE NOT SPECIF 06/17/2015 RON ISRAEL LOVING Ot Z90.710 ACQUIRED ABSENCE OF BOTH CERVIX AND UTER 06/17/2015 MOONEY DO, HEATHER C Ot N80.9 06/17/2015 MOONEY DO, HEATHER C Ot N94.6 06/17/2015 MOONEY DO, HEATHER C Ot Z01.811 06/17/2015 MOONEY DO, HEATHER C Ot Z11.2 06/26/2015 MOONEY DO, HEATHER C Ot N80.9 06/26/2015 MOONEY DO, HEATHER C Ot N94.6 06/26/2015 MOONEY DO, HEATHER C Ot Z01.811 06/26/2015 MOONEY DO, HEATHER C Ot Z11.2 06/26/2015 MOONEY DO, HEATHER C Ot N80.9 06/26/2015 MOONEY DO, HEATHER C Ot N94.6 06/26/2015 MOONEY DO, HEATHER C Ot Z01.811 06/26/2015 MOONEY DO, HEATHER C Ot Z11.2 07/02/2015 MOONEY DO, HEATHER C Ot N80.9 07/02/2015 MOONEY DO, HEATHER C Ot N94.6 07/02/2015 MOONEY DO, HEATHER C Ot Z01.811 07/02/2015 MOONEY DO, HEATHER C Ot Z11.2 07/30/2015 MOONEY DO, HEATHER C Ot M54.9 07/30/2015 MOONEY DO, HEATHER C Ot N13.30 07/30/2015 MOONEY DO, HEATHER C Ot N99.72 07/30/2015 MOONEY DO, HEATHER C Ot Q63.0 07/30/2015 MOONEY DO, HEATHER C Ot R31.9 07/30/2015 MOONEY DO, HEATHER C Ot R91.8 07/30/2015 MOONEY DO, HEATHER C Ot M54.9 07/30/2015 MOONEY DO, HEATHER C Ot N13.30 07/30/2015 MOONEY DO, HEATHER C Ot N99.72 07/30/2015 MOONEY DO, HEATHER C Ot Q63.0 07/30/2015 MOONEY DO, HEATHER C Ot R31.9 07/30/2015 MOONEY DO, HEATHER C Ot R91.8 08/06/2015 MOONEY DO, HEATHER C Ot N80.9 08/06/2015 OMONEY DO, HEATHER C Ot N94.6 08/06/2015 MOONEY DO, HEATHER C Ot Z01.811 08/06/2015 MOONEY DO, HEATHER C Ot Z11.2 08/06/2015 MOONEY DO, HEATHER C Ot M54.9 08/06/2015 MOONEY DO, HEATHER C Ot N13.30 08/06/2015 MOONEY DO, HEATHER C Ot N99.72 08/06/2015 MOONEY DO, HEATHER C Ot Q63.0 08/06/2015 MOONEY DO, HEATHER C Ot R31.9 08/06/2015 MOONEY DO, HEATHER C Ot R91.8 08/09/2015 MOONEY DO, HEATHER C Ot Q62.5 08/09/2015 MOONEY DO, HEATHER C Ot R31.9 08/09/2015 MOONEY DO, HEATHER C Ot S37.20XA 08/09/2015 MOONEY DO, HEATHER C Ot X58.XXXA 08/09/2015 MOONEY DO, HEATHER C Ot Y99.8 08/14/2015 MOONEY DO, HEATHER C Ot Q62.5 08/14/2015 MOONEY DO, HEATHER C Ot R31.9 08/14/2015 MOONEY DO, HEATHER C Ot S37.20XA 08/14/2015 MOONEY DO, HEATHER C Ot X58.XXXA 08/14/2015 MOONEY DO, HEATHER C Ot Y99.8 08/15/2015 MOONEY DO, HEATHER C Ot Q62.5 08/15/2015 MOONEY DO, HEATHER C Ot R31.9 09/03/2015 MARK GILL MD Ot N13.30 UNSPECIFIED HYDRONEPHROSIS 09/03/2015 JAIRO GÓMEZ, MARK Hdz Ot Z01.818 ENCOUNTER FOR OTHER PREPROCEDURAL EXAMIN 09/04/2015 MARK GILL MD, Ot N13.30 UNSPECIFIED HYDRONEPHROSIS 09/04/2015 MARK GILL MD Ot Z01.818 ENCOUNTER FOR OTHER PREPROCEDURAL EXAMIN 09/05/2015 MARK GILL MD Ot N13.5 CROSSING VESSEL AND STRICTURE OF URETER 09/05/2015 MARK GILL MD Ot Q62.5 DUPLICATION OF URETER 09/05/2015 MARK GILL MD Ot Z11.2 ENCOUNTER FOR SCREENING FOR OTHER BACTER 09/06/2015 MARK GILL MD Ot N13.5 CROSSING VESSEL AND STRICTURE OF URETER 09/06/2015 MARK GILL MD Ot Q62.5 DUPLICATION OF URETER 09/06/2015 MARK GILL MD Ot Z11.2 ENCOUNTER FOR SCREENING FOR OTHER BACTER 09/09/2015 MARK GILL MD, Ot N13.30 UNSPECIFIED HYDRONEPHROSIS 09/09/2015 MARK GILL MD Ot Z01.818 ENCOUNTER FOR OTHER PREPROCEDURAL EXAMIN 09/21/2015 VINICIO DO HEATHER C Ot M54.9 DORSALGIA, UNSPECIFIED 09/21/2015 MOONEY DO HEATHER C Ot N13.30 UNSPECIFIED HYDRONEPHROSIS 09/21/2015 MOONEY DO HEATHER C Ot 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.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 09/21/2015 MOONEY DO HEATHER C Ot 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 09/21/2015 MOONEY DO, HEATHER C Ot R31.9 HEMATURIA, UNSPECIFIED 09/21/2015 MOONEY DO, HEATHER C Ot R91.8 OTHER NONSPECIFIC ABNORMAL FINDING OF ABRAN 09/21/2015 MOONEY DO HEATHER C Ot Q62.5 DUPLICATION OF URETER 09/21/2015 MOONEY DO HEATHER C Ot R31.9 HEMATURIA, UNSPECIFIED 09/22/2015 MOONEY DO, HEATHER C Ot Q62.5 DUPLICATION OF URETER 09/22/2015 MOONEY DO, HEATHER C Ot R31.9 HEMATURIA, UNSPECIFIED 11/13/2015 MOONEY DO, HEATHER C Ot N80.9 ENDOMETRIOSIS, UNSPECIFIED 11/13/2015 MOONEY DO, HEATHER C Ot N94.6 DYSMENORRHEA, UNSPECIFIED 11/13/2015 MOONEY DO, HEATHER C Ot Z01.811 ENCOUNTER FOR PREPROCEDURAL RESPIRATORY 11/13/2015 MOONEY DO, HEATHER C Ot Z11.2 ENCOUNTER FOR SCREENING FOR OTHER BACTER 11/13/2015 MOONEY DO, HEATHER C Ot M54.9 DORSALGIA, UNSPECIFIED 11/13/2015 MOONEY DO, HEATHER C Ot N13.30 UNSPECIFIED HYDRONEPHROSIS 11/13/2015 MOONEY DO, HEATHER C Ot N99.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 11/13/2015 MOONEY DO, HEATHER C Ot 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 11/13/2015 MOONEY DO, HEATHER C Ot R31.9 HEMATURIA, UNSPECIFIED 11/13/2015 MOONEY DO, HEATHER C Ot R91.8 OTHER NONSPECIFIC ABNORMAL FINDING OF ABRAN 11/13/2015 MOONEY DO, HEATHER C Ot Q62.5 DUPLICATION OF URETER 11/13/2015 MOONEY DO, HEATHER C Ot R31.9 HEMATURIA, UNSPECIFIED 11/13/2015 MOONEY DO, HEATHER C Ot S37.20XA UNSPECIFIED INJURY OF BLADDER, INITIAL E 11/13/2015 MOONEY DO, HEATHER C Ot X58.XXXA EXPOSURE TO OTHER SPECIFIED FACTORS, INI 11/13/2015 MOONEY DO, HEATHER C Ot Y99.8 OTHER EXTERNAL CAUSE STATUS 11/13/2015 MOONEY DO, HEATHER C Ot Q62.5 DUPLICATION OF URETER 11/13/2015 MOONEY DO, HEATHER C Ot R31.9 HEMATURIA, UNSPECIFIED 11/14/2015 SHARONDA MORRIS MD Ot N13.30 UNSPECIFIED HYDRONEPHROSIS 11/14/2015 SHARONDA MORRIS MD Ot 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 11/23/2015 SHARONDA MORRIS MD Ot N13.30 UNSPECIFIED HYDRONEPHROSIS 11/23/2015 SHARONDA MORRIS MD Ot 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 12/10/2015 SHARONDA MORRIS MD Ot N13.30 UNSPECIFIED HYDRONEPHROSIS 12/10/2015 SHARONDA MORRIS MD Ot 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 12/13/2015 SHARONDA MORRIS MD Ot Q64.8 OTHER SPECIFIED CONGENITAL MALFORMATIONS 12/13/2015 SHARONDA MORRIS MD Ot Z01.810 ENCOUNTER FOR PREPROCEDURAL CARDIOVASCUL 12/13/2015 SHARONDA MORRIS MD Ot Z01.812 ENCOUNTER FOR PREPROCEDURAL LABORATORY E 12/17/2015 SHARONDA MORRIS MD Ot Q64.8 OTHER SPECIFIED CONGENITAL MALFORMATIONS 12/17/2015 SHARONDA MORRIS MD Ot Z01.810 ENCOUNTER FOR PREPROCEDURAL CARDIOVASCUL 12/17/2015 SHARONDA MORRIS MD Ot Z01.812 ENCOUNTER FOR PREPROCEDURAL LABORATORY E 01/03/2016 SHARONDA MORRIS MD Ot N13.30 UNSPECIFIED HYDRONEPHROSIS 01/03/2016 SHARONDA MORRIS MD Ot 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 01/05/2016 HEATHER MOONEY DO Ot N80.9 ENDOMETRIOSIS, UNSPECIFIED 01/05/2016 ANGEL MOONEY DOA C Ot N94.6 DYSMENORRHEA, UNSPECIFIED 01/05/2016 HEATHER MOONEY DO C Ot Z01.811 ENCOUNTER FOR PREPROCEDURAL RESPIRATORY 01/05/2016 ANGEL MOONEY DOA C Ot Z11.2 ENCOUNTER FOR SCREENING FOR OTHER BACTER 01/05/2016 HEATHER MOONEY DO Ot M54.9 DORSALGIA, UNSPECIFIED 01/05/2016 VINICIO LOVING HEATHER C Ot N13.30 UNSPECIFIED HYDRONEPHROSIS 01/05/2016 VINICIO LOVING HEATHER C Ot N99.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 01/05/2016 ANGEL MOONEY DOA C Ot 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 01/05/2016 VINICIO LOVING HEATHER C Ot R31.9 HEMATURIA, UNSPECIFIED 01/05/2016 VINICIO LOVING HEATHER C Ot R91.8 OTHER NONSPECIFIC ABNORMAL FINDING OF ABRAN 01/05/2016 HEATHER MOONEY DO C Ot Q62.5 DUPLICATION OF URETER 01/05/2016 VINICIO LOVING HEATHER C Ot R31.9 HEMATURIA, UNSPECIFIED 01/05/2016 HEATHER MOONEY DO Ot S37.20XA UNSPECIFIED INJURY OF BLADDER, INITIAL E 01/05/2016 HEATHER MOONEY DO Ot X58.XXXA EXPOSURE TO OTHER SPECIFIED FACTORS, INI 01/05/2016 HEATHER MOONEY DO Ot Y99.8 OTHER EXTERNAL CAUSE STATUS 01/05/2016 HEATHER MOONEY DO Ot Q62.5 DUPLICATION OF URETER 01/05/2016 HEATHER MOONEY DO Ot R31.9 HEMATURIA, UNSPECIFIED 01/05/2016 SHARONDA MORRIS MD Ot N13.30 UNSPECIFIED HYDRONEPHROSIS 01/05/2016 SHARONDA MORRIS MD Ot 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 01/05/2016 SHARONDA MORRIS MD Ot Q64.8 OTHER SPECIFIED CONGENITAL MALFORMATIONS 01/05/2016 SHARONDA MORRIS MD Ot Z01.810 ENCOUNTER FOR PREPROCEDURAL CARDIOVASCUL 01/05/2016 SHARONDA MORRIS MD Ot Z01.812 ENCOUNTER FOR PREPROCEDURAL LABORATORY E 01/05/2016 KOLBY MARTELL MD Ot N39.0 URINARY TRACT INFECTION, SITE NOT SPECIF 01/05/2016 KOLBY MARTELL MD Ot R10.30 LOWER ABDOMINAL PAIN, UNSPECIFIED 01/05/2016 KOLBY MARTELL MD Ot Z96.0 PRESENCE OF UROGENITAL IMPLANTS 01/05/2016 KOLBY MARTELL MD Ot Z98.89 OTHER SPECIFIED POSTPROCEDURAL STATES 01/08/2016 KOLBY MARTELL MD Ot N39.0 URINARY TRACT INFECTION, SITE NOT SPECIF 01/08/2016 KOLBY MARTELL MD Ot R10.30 LOWER ABDOMINAL PAIN, UNSPECIFIED 01/08/2016 KOLBY MARTELL MD Ot Z98.89 OTHER SPECIFIED POSTPROCEDURAL STATES 01/08/2016 KOLBY MARTELL MD Ot N39.0 URINARY TRACT INFECTION, SITE NOT SPECIF 01/08/2016 KOLBY MARTELL MD Ot R10.30 LOWER ABDOMINAL PAIN, UNSPECIFIED 01/08/2016 KOLBY MARTELL MD Ot Z96.0 PRESENCE OF UROGENITAL IMPLANTS 01/08/2016 KOLBY MARTELL MD Ot Z98.89 OTHER SPECIFIED POSTPROCEDURAL STATES 01/10/2016 MOONEY DO, HEATHER C Ot N80.9 ENDOMETRIOSIS, UNSPECIFIED 01/10/2016 MOONEY DO, HEATHER C Ot N94.6 DYSMENORRHEA, UNSPECIFIED 01/10/2016 MOONEY DO HEATHER C Ot Z01.811 ENCOUNTER FOR PREPROCEDURAL RESPIRATORY 01/10/2016 MOONEY DO HEATHER C Ot Z11.2 ENCOUNTER FOR SCREENING FOR OTHER BACTER 01/10/2016 MOONEY DO HEATHER C Ot M54.9 DORSALGIA, UNSPECIFIED 01/10/2016 MOONEY DO, HEATHER C Ot N13.30 UNSPECIFIED HYDRONEPHROSIS 01/10/2016 MOONEY DO, HEATHER C Ot N99.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 01/10/2016 MOONEY DO HEATHER C Ot 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 01/10/2016 MOONEY DO HEATHER C Ot R31.9 HEMATURIA, UNSPECIFIED 01/10/2016 MOONEY DO HEATHER C Ot R91.8 OTHER NONSPECIFIC ABNORMAL FINDING OF ABRAN 01/10/2016 VINICIO DO HEATHER C Ot Q62.5 DUPLICATION OF URETER 01/10/2016 MOONEY DO, HEATHER C Ot R31.9 HEMATURIA, UNSPECIFIED 01/10/2016 MOONEY DO, HEATHER C Ot S37.20XA UNSPECIFIED INJURY OF BLADDER, INITIAL E 01/10/2016 VINICIO LOVING HEATHER C Ot X58.XXXA EXPOSURE TO OTHER SPECIFIED FACTORS, INI 01/10/2016 VINICIO LOVING HEATHER C Ot Y99.8 OTHER EXTERNAL CAUSE STATUS 01/10/2016 MOONEY DO HEATHER C Ot Q62.5 DUPLICATION OF URETER 01/10/2016 MOONEY DO HEATHER C Ot R31.9 HEMATURIA, UNSPECIFIED 01/10/2016 SHARONDA MORRIS MD Ot N13.30 UNSPECIFIED HYDRONEPHROSIS 01/10/2016 SHARONDA MORRIS MD Ot 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 01/10/2016 SHARONDA MORRIS MD Ot Q64.8 OTHER SPECIFIED CONGENITAL MALFORMATIONS 01/10/2016 SHARONDA MORRIS MD Ot Z01.810 ENCOUNTER FOR PREPROCEDURAL CARDIOVASCUL 01/10/2016 SHARONDA MORRIS MD Ot Z01.812 ENCOUNTER FOR PREPROCEDURAL LABORATORY E 05/21/2016 ALEXANDRA GÓMEZ, SHARONDA Arias Ot Q64.8 OTHER SPECIFIED CONGENITAL MALFORMATIONS 05/21/2016 ALEXANDRA GÓMEZ, SHARONDA Arias Ot Z01.810 ENCOUNTER FOR PREPROCEDURAL CARDIOVASCUL 05/21/2016 SHARONDA MORRIS MD Ot Z01.812 ENCOUNTER FOR PREPROCEDURAL LABORATORY E 03/16/2017 MOONEY DO HEATHER C Ot N80.9 ENDOMETRIOSIS, UNSPECIFIED 03/16/2017 MOONEY DO, HEATHER C Ot N94.6 DYSMENORRHEA, UNSPECIFIED 03/16/2017 MOONEY DO HEATHER C Ot Z01.811 ENCOUNTER FOR PREPROCEDURAL RESPIRATORY 03/16/2017 VINICIO DO HEATHER C Ot Z11.2 ENCOUNTER FOR SCREENING FOR OTHER BACTER 03/16/2017 MOONEY DO HEATHER C Ot M54.9 DORSALGIA, UNSPECIFIED 03/16/2017 MOONEY DO HEATHER C Ot N13.30 UNSPECIFIED HYDRONEPHROSIS 03/16/2017 MOONEY DO HEATHER C Ot N99.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 03/16/2017 MOONEY DO, HEATHER C Ot 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 03/16/2017 MOONEY DO HEATHER C Ot R31.9 HEMATURIA, UNSPECIFIED 03/16/2017 MOONEY DO, HEATHER C Ot R91.8 OTHER NONSPECIFIC ABNORMAL FINDING OF ABRAN 03/16/2017 MOONEY DO HEATHER C Ot Q62.5 DUPLICATION OF URETER 03/16/2017 MOONEY DO HEATHER C Ot R31.9 HEMATURIA, UNSPECIFIED 03/16/2017 MOONEY DO, HEATHER C Ot S37.20XA UNSPECIFIED INJURY OF BLADDER, INITIAL E 03/16/2017 MOONEY DO, HEATHER C Ot X58.XXXA EXPOSURE TO OTHER SPECIFIED FACTORS, INI 03/16/2017 MOONEY DO HEATHER C Ot Y99.8 OTHER EXTERNAL CAUSE STATUS 03/16/2017 MOONEY DO HEATHER C Ot Q62.5 DUPLICATION OF URETER 03/16/2017 MOONEY DO HEATHER C Ot R31.9 HEMATURIA, UNSPECIFIED 03/16/2017 ALEXANDRA GÓMEZ, SHARONDA Arias Ot N13.30 UNSPECIFIED HYDRONEPHROSIS 03/16/2017 SHARONDA MORRIS MD Ot 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 03/16/2017 SHARONDA MORRIS MD Ot Q64.8 OTHER SPECIFIED CONGENITAL MALFORMATIONS 03/16/2017 ALEXANDRA GÓMEZ, SHARONDA Arias Ot Z01.810 ENCOUNTER FOR PREPROCEDURAL CARDIOVASCUL 03/16/2017 SHARONDA MORRIS MD Ot Z01.812 ENCOUNTER FOR PREPROCEDURAL LABORATORY E 03/16/2017 MOONEY DO HEATHER C Ot N80.9 ENDOMETRIOSIS, UNSPECIFIED 03/16/2017 MOONEY DO, HEATHER C Ot N94.6 DYSMENORRHEA, UNSPECIFIED 03/16/2017 MOONEY DO HEATHER C Ot Z01.811 ENCOUNTER FOR PREPROCEDURAL RESPIRATORY 03/16/2017 VINICIO DO HEATHER C Ot Z11.2 ENCOUNTER FOR SCREENING FOR OTHER BACTER 03/16/2017 MOONEY DO HEATHER C Ot M54.9 DORSALGIA, UNSPECIFIED 03/16/2017 MOONEY DO HEATHER C Ot N13.30 UNSPECIFIED HYDRONEPHROSIS 03/16/2017 MOONEY DO, HEATHER C Ot N99.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 03/16/2017 MOONEY DO HEATHER C Ot 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 03/16/2017 MOONEY DO HEATHER C Ot R31.9 HEMATURIA, UNSPECIFIED 03/16/2017 MOONEY DO, HEATHER C Ot R91.8 OTHER NONSPECIFIC ABNORMAL FINDING OF ABRAN 03/16/2017 VINICIO DO HEATHER C Ot Q62.5 DUPLICATION OF URETER 03/16/2017 VINICIO DO HEATHER C Ot R31.9 HEMATURIA, UNSPECIFIED 03/16/2017 MOONEY DO, HEATHER C Ot S37.20XA UNSPECIFIED INJURY OF BLADDER, INITIAL E 03/16/2017 MOONEY DO HEATHER C Ot X58.XXXA EXPOSURE TO OTHER SPECIFIED FACTORS, INI 03/16/2017 VINICIO DO HEATHER C Ot Y99.8 OTHER EXTERNAL CAUSE STATUS 03/16/2017 MOONEY DO HEATHER C Ot Q62.5 DUPLICATION OF URETER 03/16/2017 VINICIO DO HEATHER C Ot R31.9 HEMATURIA, UNSPECIFIED 03/16/2017 SHARONDA MORRIS MD Ot N13.30 UNSPECIFIED HYDRONEPHROSIS 03/16/2017 SHARONDA MORRIS MD Ot 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 03/16/2017 SHARONDA MORRIS MD Ot Q64.8 OTHER SPECIFIED CONGENITAL MALFORMATIONS 03/16/2017 SHARONDA MORRIS MD Ot Z01.810 ENCOUNTER FOR PREPROCEDURAL CARDIOVASCUL 03/16/2017 SHARONDA MORRIS MD Ot Z01.812 ENCOUNTER FOR PREPROCEDURAL LABORATORY E 03/17/2017 SHARONDA MORRIS MD Ot Q62.0 CONGENITAL HYDRONEPHROSIS 03/17/2017 SHARONDA MORRIS MD Ot Z53.29 PROC/TRTMT NOT CRD OUT BEC PT DECISION F 03/25/2017 HEATHER MOONEY DO Ot N80.9 ENDOMETRIOSIS, UNSPECIFIED 03/25/2017 HEATHER MOONEY DO Ot N94.6 DYSMENORRHEA, UNSPECIFIED 03/25/2017 HEATHER MOONEY DO Ot Z01.811 ENCOUNTER FOR PREPROCEDURAL RESPIRATORY 03/25/2017 HEATHER MOONEY DO Ot Z11.2 ENCOUNTER FOR SCREENING FOR OTHER BACTER 03/25/2017 HEATHER MOONEY DO Ot M54.9 DORSALGIA, UNSPECIFIED 03/25/2017 HEATHER MOONEY DO C Ot N13.30 UNSPECIFIED HYDRONEPHROSIS 03/25/2017 ANGEL MOONEY DOA C Ot 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.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 03/25/2017 HEATHER MOONEY DO Ot 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 03/25/2017 HEATHER MOONEY DO Ot R31.9 HEMATURIA, UNSPECIFIED 03/25/2017 ANGEL MOONEY DOA C Ot R91.8 OTHER NONSPECIFIC ABNORMAL FINDING OF ABRAN 03/25/2017 HEATHER MOONEY DO C Ot Q62.5 DUPLICATION OF URETER 03/25/2017 ANGEL MOONEY DOA C Ot R31.9 HEMATURIA, UNSPECIFIED 03/25/2017 VINICIO LOVING HETAHER C Ot S37.20XA UNSPECIFIED INJURY OF BLADDER, INITIAL E 03/25/2017 HEATHER MOONEY DO Ot X58.XXXA EXPOSURE TO OTHER SPECIFIED FACTORS, INI 03/25/2017 HEATHER MOONEY DO Ot Y99.8 OTHER EXTERNAL CAUSE STATUS 03/25/2017 HEATHER MOONEY DO Ot Q62.5 DUPLICATION OF URETER 03/25/2017 HEATHER MOONEY DO Ot R31.9 HEMATURIA, UNSPECIFIED 03/25/2017 SHARONDA MORRIS MD Ot N13.30 UNSPECIFIED HYDRONEPHROSIS 03/25/2017 SHARONDA MORRIS MD Ot 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 03/25/2017 SHARONDA MORRIS MD Ot Q64.8 OTHER SPECIFIED CONGENITAL MALFORMATIONS 03/25/2017 SHARONDA MORRIS MD Ot Z01.810 ENCOUNTER FOR PREPROCEDURAL CARDIOVASCUL 03/25/2017 SHARONDA MORRIS MD, Ot Z01.812 ENCOUNTER FOR PREPROCEDURAL LABORATORY E 03/25/2017 SHARONDA MORRIS MD Ot Q62.0 CONGENITAL HYDRONEPHROSIS 03/25/2017 SHARONDA MORRIS MD Ot Z53.29 PROC/TRTMT NOT CRD OUT BEC PT DECISION F Procedures Code [place] [address] OXIMETRY 12/22/2012 33673 OXIMETRY 10/14/2013 24859 DRAIN/INJECT JOINT/BURSA 12/31/2013 95498 THERAPUTIC INJ SQ/IM 01/19/2014 J1050 DEPO PROVERA 01/19/2014 36680 GC/CHLAM PROBE ([facility]) 01/19/2014 34552 PAP SMEAR 01/19/2014 Q0091 PAP SMEAR OBTAIN SMEAR 01/19/2014 43599 TEST, URINE (IN- HOUSE) 01/19/2014 84067 ROUTINE VENIPUNCTURE 01/26/2014 70863 CMP 01/26/2014 05578 LIPID PANEL 01/26/2014 84272 CBC 01/26/2014 THYANA THYROID ANALYZER 01/26/2014 50097 TEST, URINE (IN- HOUSE) 04/10/2014 48113 THERAPUTIC INJ SQ/IM 04/10/2014 J1050 DEPO PROVERA 04/10/2014 55666 INFLUENZA A & B (IN-HOUSE) 05/03/2014 53809 STREP A (IN-HOUSE) 05/03/2014 Results Test Result Range Automated blood complete blood count (hemogram) panel - 12/12/15 15:44 Blood leukocytes automated count (number/volume) 8.8 10*3/uL 4.3-11.0 Blood erythrocytes automated count (number/volume) 4.66 10*6/uL 4.35-5.85 Venous blood hemoglobin measurement (mass/volume) 13.5 g/dL 11.5-16.0 Blood hematocrit (volume fraction) 41 % 35-52 Automated erythrocyte mean corpuscular volume 87 [foz_us] 80-99 Automated erythrocyte mean corpuscular hemoglobin (mass per erythrocyte) 29 pg 25-34 Automated erythrocyte mean corpuscular hemoglobin concentration measurement ( mass/volume) 33 g/dL 32-36 Automated erythrocyte distribution width ratio 13.5 % 10.0-14.5 Automated blood platelet count (count/volume) 278 10*3/uL 130-400 Automated blood platelet mean volume measurement 10.7 [foz_us] 7.4-10.4 Complete urinalysis with reflex to culture - 12/12/15 15:44 Urine color determination YELLOW NRG Urine clarity determination CLEAR NRG Urine pH measurement by test strip 6 5-9 Specific gravity of urine by test strip 1.010 1.016- 1.022 Urine protein assay by test strip, semi-quantitative NEGATIVE NEGATIVE Urine glucose detection by automated test strip NEGATIVE NEGATIVE Erythrocytes detection in urine sediment by light microscopy NEGATIVE NEGATIVE Urine ketones detection by automated test strip NEGATIVE NEGATIVE Urine nitrite detection by test strip NEGATIVE NEGATIVE Urine total bilirubin detection by test strip NEGATIVE NEGATIVE Urine urobilinogen measurement by automated test strip (mass/volume) NORMAL NORMAL Urine leukocyte esterase detection by dipstick NEGATIVE NEGATIVE Automated urine sediment erythrocyte count by microscopy (number/high power field) NONE NRG Automated urine sediment leukocyte count by microscopy (number/high power field ) [HPF] NRG Bacteria detection in urine sediment by light microscopy TRACE NRG Squamous epithelial cells detection in urine sediment by light microscopy 2-5 NRG Crystals detection in urine sediment by light microscopy NONE NRG Casts detection in urine sediment by light microscopy NONE NRG Mucus detection in urine sediment by light microscopy NEGATIVE NRG Complete urinalysis with reflex to culture NO NRG Comprehensive metabolic panel - 12/12/15 15:44 Serum or plasma sodium measurement (moles/volume) 136 mmol/L 135-145 Serum or plasma potassium measurement (moles/volume) 4.3 mmol/L 3.6-5.0 Serum or plasma chloride measurement (moles/volume) 104 mmol/L 98-107 Carbon dioxide 24 mmol/L 21-32 Serum or plasma anion gap determination (moles/volume) 8 mmol/L 5-14 Serum or plasma urea nitrogen measurement (mass/volume) 14 mg/dL 7-18 Serum or plasma creatinine measurement (mass/volume) 0.94 mg/dL 0.60-1.30 Serum or plasma urea nitrogen/creatinine mass ratio 15 NRG Serum or plasma creatinine measurement with calculation of estimated glomerular filtration rate > NRG Serum or plasma glucose measurement (mass/volume) 87 mg/dL 70-105 Serum or plasma calcium measurement (mass/volume) 9.4 mg/dL 8.5-10.1 Serum or plasma total bilirubin measurement (mass/volume) 0.3 mg/dL 0.1-1.0 Serum or plasma alkaline phosphatase measurement (enzymatic activity/volume) 73 U/L 40-136 Serum or plasma aspartate aminotransferase measurement (enzymatic activity/ volume) 20 U/L 5-34 Serum or plasma alanine aminotransferase measurement (enzymatic activity/volume ) 26 U/L 0-55 Serum or plasma protein measurement (mass/volume) 7.3 g/dL 6.4-8.2 Serum or plasma albumin measurement (mass/volume) 4.4 g/dL 3.2-4.5 Bacterial urine culture - 12/12/15 15:44 URINE CULTURE RESULTS <10,000/ML NRG Complete urinalysis with reflex to culture - 01/05/16 20:00 Urine color determination YELLOW NRG Urine clarity determination CLEAR NRG Urine pH measurement by test strip 5 5-9 Specific gravity of urine by test strip 1.010 1.016- 1.022 Urine protein assay by test strip, semi-quantitative 2+ NEGATIVE Urine glucose detection by automated test strip NEGATIVE NEGATIVE Erythrocytes detection in urine sediment by light microscopy 5+ NEGATIVE Urine ketones detection by automated test strip NEGATIVE NEGATIVE Urine nitrite detection by test strip NEGATIVE NEGATIVE Urine total bilirubin detection by test strip NEGATIVE NEGATIVE Urine urobilinogen measurement by automated test strip (mass/volume) NORMAL NORMAL Urine leukocyte esterase detection by dipstick 3+ NEGATIVE Automated urine sediment erythrocyte count by microscopy (number/high power field) [HPF] NRG Automated urine sediment leukocyte count by microscopy (number/high power field ) [HPF] NRG Bacteria detection in urine sediment by light microscopy FEW NRG Squamous epithelial cells detection in urine sediment by light microscopy 2-5 NRG Crystals detection in urine sediment by light microscopy NONE NRG Casts detection in urine sediment by light microscopy NONE NRG Mucus detection in urine sediment by light microscopy NEGATIVE NRG Complete urinalysis with reflex to culture YES NRG Bacterial urine culture - 01/05/16 20:00 URINE CULTURE RESULTS <10,000/ML NRG Encounters ACCT No. Visit Date/Time Discharge Status Pt. Type Provider Facility Loc./Unit Complaint [id number] 05/03/2014 14:34:00 05/03/2014 23:59:59 CLS Outpatient VAL OCHOA DO [id number] 04/10/2014 15:55:00 04/10/2014 23:59:59 CLS Outpatient MONICA BARBOSA APRN [id number] 02/14/2014 10:21:00 02/14/2014 23:59:59 CLS Outpatient MONICA BARBOSA APRN [id number] 01/26/2014 08:15:00 01/26/2014 23:59:59 CLS Outpatient VAL OCHOA DO [id number] 01/19/2014 16:23:00 01/19/2014 23:59:59 CLS Outpatient MONICA BARBOSA APRN [id number] 12/31/2013 10:42:00 12/31/2013 23:59:59 CLS Outpatient VAL OCHOA DO [id number] 10/14/2013 09:12:00 10/14/2013 23:59:59 CLS Outpatient VAL OCHOA DO [id number] 12/21/2012 18:21:00 Document Registration [id number] 03/25/2017 08:55:00 03/25/2017 23:59:59 CLS Outpatient SHARONDA MORRIS MD [facility] CARD CONGINITAL HYDRONEPHROSIS [id number] 03/16/2017 14:37:00 03/16/2017 23:59:59 CLS Outpatient SHARONDA MORRIS MD [facility] RAD CONGINITAL HYDRONEPHROSIS [id number] 01/05/2016 19:44:00 01/05/2016 21:02:00 DIS Emergency KOLBY MARTELL MD [facility] ER LOWER ABD/VAG PAIN [id number] 12/12/2015 15:28:00 12/12/2015 23:59:59 CLS Outpatient SHARONDA MORRIS MD [facility] CARD LEFT DUPLICATED SYSTEM [id number] 11/13/2015 12:48:00 11/13/2015 23:59:59 CLS Outpatient SHARONDA MORRIS MD [facility] CARD M13.30 [id number] 09/05/2015 06:04:00 09/05/2015 09:50:00 DIS Outpatient MARK GILL MD [facility] SDC HYDRONEPHROSIS [id number] 09/03/2015 05:41:00 09/03/2015 12:00:00 DIS Outpatient MARK GILL MD [facility] PREOP HYDRONEPHROSIS [id number] 08/14/2015 13:35:00 08/14/2015 23:59:59 CLS Outpatient HEATHER MOONEY DO [facility] RAD HEMATURIA [id number] 08/06/2015 14:23:00 08/06/2015 23:59:59 CLS Outpatient HEATHER MOONEY DO [facility] RAD HEMATURIA [id number] 07/27/2015 13:38:00 07/27/2015 23:59:59 CLS Outpatient HEATHER MOONEY DO [facility] RAD BLADDER INJ, HEMATURIA [id number] 06/17/2015 10:05:00 06/17/2015 11:25:00 DIS Emergency RON ISRAEL LOVING [facility] ER POST OP/CATHETER ISSUES [id number] 06/12/2015 03:11:00 06/13/2015 11:30:00 DIS Outpatient HEATHER MOONEY DO [facility] SDC DYSNENORRHEA, ENDOMETRIOSIS [id number] 06/06/2015 12:14:00 06/06/2015 23:59:59 CLS Outpatient HEATHER MOONEY DO [facility] PREOP DYNENORRHEA, ENDOMETRIOSIS [id number] 04/25/2015 11:52:00 04/25/2015 23:59:59 CLS Outpatient MONICA BARBOSA APRN [facility] RAD
[2017-05-03] MEDS ORDERED: EFFEXOR (07:35)
[2017-05-03] MEDS ORDERED: AMOX-358 PO ×2 (08:26→08:32)
--- NOTE | 2017-05-03 08:26 | ED Integumentary General ---
General Chief Complaint: Skin/Wound Problems Stated Complaint: R HAND CAT BITE Nursing Triage Note: AMB TO ROOM WAS BITTEN ON R HAND BY NEIGHBOR CAT. HAND SWOLLEN AND RED. REPORTS THAT CAT IS UP TO DATE ON ITS'S SHOTS. Source: patient Exam Limitations: no limitations History of Present Illness Time seen by provider: 08:23 Initial Comments The patient is a 36-year-old white female who presents with a chief complaint of pain and swelling in her right hand. She states that yesterday she was bitten by the neighbor's cat. Subsequently the hand has developed pain redness and swelling. Timing/Duration: yesterday Location: hands Associated Symptoms: denies symptoms Allergies and Home Medications Allergies Coded Allergies: iodine (Verified Allergy, Intermediate, MOUTH ITCHING, HIVES, 09/03/15) Home Medications [Effexor] , (Reported) Constitutional: see HPI EENTM: no symptoms reported Respiratory: no symptoms reported Cardiovascular: no symptoms reported Gastrointestinal: no symptoms reported Genitourinary: no symptoms reported Musculoskeletal: no symptoms reported Skin: see HPI Psychiatric/Neurological: No Symptoms Reported Endocrine: No Symptoms Reported Hematologic/Lymphatic: No Symptoms Reported Past Vhhjycy-Ankkfn-Kdyznu Hx Patient Social History Alcohol Use: Occasionally Uses Recreational Drug Use: No Smoking Status: Never a Smoker Former Smoker, Quit: September 05, 2003 Recent Foreign Travel: No Contact w/Someone Who Travel: No Recent Infectious Disease Expo: No Recent Hopitalizations: No Seasonal Allergies Seasonal Allergies: Yes Surgeries History of Surgeries: Yes (WISDOM TEETH, DXLS, C/S X2, urinary stent) Surgeries: Abdominal, Section, Hysterectomy Respiratory History of Respiratory Disorde: No Cardiovascular History of Cardiac Disorders: No Neurological History of Neurological Disord: No Reproductive System Hx Reproductive Disorders: No (HYSTERECTOMY) HIV/AIDS: No EDUCATION CONSULTANT History: Hysterectomy Gastrointestinal History of Gastrointestinal Di: Yes Gastrointestinal Disorders: Gastroesophageal Reflux Musculoskeletal History of Musculoskeletal Dis: No Endocrine History of Endocrine Disorders: No Cancer History of Cancer: No Psychosocial History of Psychiatric Problem: No (POST DEPRESSION) Integumentary History of Skin or Integumenta: No Blood Transfusions History of Blood Disorders: No Adverse Reaction to a Blood Tr: No Family Medical History Significant Family History: No Pertinent Family Hx Physical Exam Vital Signs Vital Sign - Last 12Hours 05/03/17 07:28 Temp 98.0 Pulse 98 B/P (MAP) 127/87 (100) Pulse Ox 98 Capillary Refill : Less Than 3 Seconds General Appearance: WD/WN, no apparent distress HEENT: normal ENT inspection Neck: non-tender, full range of motion, supple, normal inspection Cardiovascular: normal peripheral pulses, regular rate, rhythm, no edema, no gallop, no JVD, no murmur Respiratory: chest non-tender, lungs clear, normal breath sounds, no respiratory distress, no accessory muscle use Comments There are several puncture wounds on the dorsum of the right hand. There is erythema and warmth and swelling over the dorsum of the right hand. Progress/Results/Core Measures Results/Orders Vital Signs/I&O Vital Sign - Last 12Hours 05/03/17 07:28 Temp 98.0 Pulse 98 B/P (MAP) 127/87 (100) Pulse Ox 98 Blood Pressure Mean: 100 Departure Impression Impression: Primary Impression: cellulitis Disposition: 01 HOME, SELF-CARE Condition: Stable/Unchanged Departure-Patient Inst. Referrals: VAL OCHOA DO (PCP) Primary Care Physician MONICA BARBOSA APRN (Family) Primary Care Physician Patient Instructions: Cellulitis (Skin Infection), Adult (DC) Add. Discharge Instructions: All discharge instructions reviewed with patient and/or family. Voiced understanding. Scripts Amoxicillin/Potassium Clav (Augmentin 875-125 Tablet) 1 Each Tablet 1 EACH PO twice a day, #14 TAB Prov: ANETTE MORALES MD 05/03/17 ANETTE MORALES MD May 03, 2017 08:26
[2017-05-03 08:34] VITALS: BP 127/87
== END 2017-05-03 08:34 | disposition home or self-care (01) ==
LOC: EDUNIT# 07:16 → ER 07:18
DX: L03.113 Cellulitis of right upper limb (principal); S61.451A Open bite of right hand, initial encounter; K21.9 Gastro-esophageal reflux disease without esophagitis; Z87.891 Personal history of nicotine dependence; Z90.710 Acquired absence of both cervix and uterus; Z96.0 Presence of urogenital implants; Z87.59 Personal history of other complications of pregnancy, childbirth and the puerperium; W55.01XA Bitten by cat, initial encounter
CPT/HCPCS: 99282

== ENCOUNTER 2020-10-02 06:24 | Outpatient (CLI) | payer OTHER ==
[~2020-10-02] VITALS: Ht 152.4 cm; Wt 85.9 kg
[~2020-10-02 06:24] MED LIST changes: +AMOX-358 PO; -CETI10TA20 PO; +CETI10TA49 PO; -CIPR500T4 PO; +CIPR500T5 PO; +EFFEXOR; +HYDR-34 PO; -HYDR-3816 PO; +METR-145 PO; -METR500T21 PO; +PHEN97.517 PO; +RANI-613 PO; -RANI150T15 PO; -TAMS0.4C98 PO; +TMSL.4C PO; -[UNRECOGNIZED DRUG - CODE] PO
[2020-10-03] MEDS ORDERED: LAMO150T4 PO (11:47)
== END 2020-10-03 12:25 | disposition home or self-care (01) ==
LOC: PREOP 06:24
PROVIDERS: ATTEND Obstetrics & Gynecology
DX: Z01.818 Encounter for other preprocedural examination (principal)

== ENCOUNTER 2020-10-09 06:14 | Day surgery (SDC) | payer OTHER ==
[2020-10-09] VITALS (10 sets, daily range): BP systolic 120–154; BP diastolic 80–99
[~2020-10-09] VITALS: Ht 152.4 cm; Wt 85.9 kg
[~2020-10-09 06:14] MED LIST changes: +LAMO150T4 PO
[2020-10-09 06:33] LABS: BILIRUBIN,URINE NEGATIVE (NEGATIVE); CLARITY,URINE CLEAR; COLOR,URINE YELLOW; GLUCOSE, URINE (UA) NEGATIVE (NEGATIVE); KETONES,URINE NEGATIVE (NEGATIVE); LEUKOCYTE ESTERASE ,URINE NEGATIVE (NEGATIVE); NITRITE,URINE NEGATIVE (NEGATIVE); PH,URINE 5.5 (5-9); PROTEIN,URINE NEGATIVE (NEGATIVE)
[2020-10-09 06:40] LABS: BACTERIA,URINE NEGATIVE /HPF; WBC,URINE RARE /HPF
[2020-10-09] MEDS ORDERED: FAMOTIDINE 20MG/2ML IV (PEPCID) IV ONE (06:45)
[2020-10-09] MEDS ORDERED: ONDANSETRON 4 MG/2 ML (SDV) Z0FRAN IV ONE (06:45)
[2020-10-09 07:06] LABS: BASOPHILS % (AUTO) 0 % (0-10); EOSINOPHILS # (AUTO) 0.2 10^3/uL (0.0-0.3); EOSINOPHILS % (AUTO) 2 % (0-10); HEMATOCRIT 44 % (35-52); HEMOGLOBIN 14.2 g/dL (11.5-16.0); LYMPHOCYTES # (AUTO) 1.8 10^3/uL (1.0-4.0); LYMPHOCYTES % (AUTO) 26 % (12-44); MEAN CORPUSCULAR HEMOGLOBIN 29 pg (25-34); MEAN CORPUSCULAR HGB CONC 32 g/dL (32-36); MEAN CORPUSCULAR VOLUME 90 fL (80-99); MEAN PLATELET VOLUME 10.5 fL (9.0-12.2); MONOCYTES # (AUTO) 0.6 10^3/uL (0.0-1.0); MONOCYTES % (AUTO) 9 % (0-12); NEUTROPHILS # (AUTO) 4.2 10^3/uL (1.8-7.8); NEUTROPHILS % (AUTO) 62 % (42-75); PLATELET COUNT 247 10^3/uL (130-400); WHITE BLOOD COUNT 6.8 10^3/uL (4.3-11.0)
[2020-10-09] MEDS ORDERED: ESTRADIOL VAGINAL CREAM 42.5 GM (ESTRACE) VG ONE (07:08)
[2020-10-09] MEDS ORDERED: NS (IVPB) 100 ML ONE (07:08)
[2020-10-09] MEDS ORDERED: LIDOCAINE/EPI 1%-1:100,000 (XYLOCAINE) 20ML ONE (07:09)
[2020-10-09] MEDS ORDERED: LIDOCAINE PF 2% 5 ML (XYLOCAINE) VIAL ONE (07:21)
[2020-10-09] MEDS ORDERED: ONDANSETRON 4 MG/2 ML (SDV) Z0FRAN ONE (07:21)
[2020-10-09] MEDS ORDERED: SEVOFLURANE (ULTANE) 15 ML INHAL SOLN ONE (07:21)
[2020-10-09] MEDS ORDERED: MIDAZOLAM 2 MG/2 ML (VERSED) VIAL ONE (07:21)
[2020-10-09] MEDS ORDERED: proPOfol 200 MG/20 ML (DIPRIVAN) VIAL IV ONE (07:21)
[2020-10-09] MEDS ORDERED: fentaNYL INJ 100 MCG/2 ML AMP ONE (07:21)
[2020-10-09] MEDS ORDERED: ceFAZolin 2 GM IV Premixed 50 ML IV ONE (07:30)
[2020-10-09] MEDS: LACTATED RINGERS 1,000 ML IV PRN ×2 (07:40→08:25)
[2020-10-09] MEDS ORDERED: HYDROmorphone 2 MG/ML VIAL (DILAUDID) IV ONE (08:00)
[2020-10-09] MEDS ORDERED: ONDANSETRON 4 MG/2 ML (SDV) Z0FRAN IVP PRN (08:00)
[2020-10-09] MEDS ORDERED: PROMETHAZINE INJ 25 MG/ML (PHENERGAN) AMP IVP ONE (08:00)
[2020-10-09] MEDS ORDERED: morphine INJ 10 MG/ML 1ML (SYR OR VIAL) IVP ONE (08:00)
[2020-10-09] MEDS ORDERED: KETOROLAC 30 MG/ML VIAL ONE (08:23)
--- NOTE | 2020-10-09 08:56 | Progress Note-Pre Operative ---
Pre-Operative Progress Note H&P Reviewed The H&P was reviewed, patient examined and no changes noted. Date Seen by Provider: Oct 09, 2020 Time Seen by Provider: 07:45 Date H&P Reviewed: Oct 09, 2020 Time H&P Reviewed: 07:45 Pre-Operative Diagnosis: stress incontinence HEATHER MOONEY DO Oct 09, 2020 08:56
--- NOTE | 2020-10-09 09:02 | Operative Report ---
Operative Report Date of Procedure/Surgery Oct 09, 2020 Surgeon (s) HEATHER MOONEY DO Slag Skimmer (s): NA Post-Operative Diagnosis MARQUIS Procedure Performed Maria Alejandra NICHOLE sling Description of Procedure Anesthesia Type: General Estimated blood loss (mL): minimal Specimen(s) collected/removed none Description of the Procedure with informed consent the patient was taken to the operating room where general anesthesia was found to be adequate. She was then prepped and draped in the usual sterile fashion in the dorsolithotomy position. A Qureshi catheter was placed in the bladder to drain it completely. The suburethral tissue was injected with vasopressin and a 1 cm incision was m jorge approximately 1.5 cm from the urethral meatus. I then dissected bilaterally in the periurethral space. I then placed the pubovaginal sling in standard manner bilaterally. A cystoscopy was then done and there is no intravesicular pathology and no inj ury. the cystoscope was then removed. at least 300 ml of fluid was placed in the bladder and crede maneuver was done and there was minimal to no leakage. The sling was then examined and found to be flat under the midurethra with no twisting or buckling. It was found to be loose and no leakage occurred. The sling applicator was now removed. The incision was now closed with 4-0 Monocryl in continued fashion. A filled the bladder with approximately 150 ml so that she can void prior to being discharged. Findings of the Procedure > 50 degrees of urethral rotation Allergies and Home Medications Allergies Coded Allergies: iodine (Verified Allergy, Intermediate, MOUTH ITCHING, HIVES, 09/03/15) Home Medications Acetaminophen 500 Mg Tablet, 1,000 MG PO Q8H Prescribed by: HEATHER MOONEY on 10/09/20 1038 Ciprofloxacin HCl 250 Mg Tablet, 250 MG PO BID Prescribed by: HEATHER MOONEY on 10/09/20 1108 Docusate Sodium 100 Mg Capsule, 100 MG PO DAILY Prescribed by: HEATHER MOONEY on 10/09/20 1038 Ibuprofen 600 Mg Tablet, 600 MG PO Q6H Prescribed by: HEATHER MOONEY on 10/09/20 1038 Lamotrigine 150 Mg Tablet, 150 MG PO DAILY, (Reported) Last Action: Reviewed Opium/Belladonna Alkaloids 1 Each Supp.rect, 1 EACH RC Q12H Prescribed by: HEATHER MOONEY on 10/09/20 1038 Oxycodone Hcl 5 Mg Tab, 5 MG PO Q4H Prescribed by: HEATHER MOONEY on 10/09/20 1038 Phenazopyridine HCl 200 Mg Tablet, 1 TAB PO TID Prescribed by: HEATHER MOONEY on 10/09/20 1108 Patient Home Medication List Home Medication List Reviewed: Yes HEATHER MOONEY DO Oct 09, 2020 09:02
--- NOTE | 2020-10-09 09:07 | Discharge Inst-Women's Service ---
Discharge Inst-Women's Serv Depart Medication/Instructions New, Converted or Re-Newed RX: RX on Chart Final Diagnosis stress incontinence Problems Reviewed?: Yes Consults/Follow Up Additional Follow Up: Yes Activity Activity: Activity as Tolerated NO SMOKING: NO SMOKING Nothing Inside Vagina: No Douching, No [place], No Tampons Diet Discharge Diet: No Restrictions Symptoms to Report to : Bleeding Excessive, Eyesight Changes, Pain Increased, Fever Over 101 Degrees F, Urination Difficulty, Vaginal Bleeding Increase, Vaginal Discharge Foul For Any Problems or Questions: Contact Your Physician Skin/Wound Care Bathing Instructions: HEATHER Prieto DO Oct 09, 2020 09:07
[2020-10-09] MEDS ORDERED: KETOROLAC 30 MG/ML VIAL IVP ONE (09:15)
[2020-10-09] MEDS ORDERED: BELLADONNA ALK/OPIUM (B & O) 30 MG SUPP PR ONE (10:30)
[2020-10-09] MEDS ORDERED: IBUP-1773 PO (10:38)
[2020-10-09] MEDS ORDERED: ACET-168 PO (10:38)
[2020-10-09] MEDS ORDERED: DOCU-143 PO (10:38)
[2020-10-09] MEDS ORDERED: OXC5T PO (10:38)
[2020-10-09] MEDS ORDERED: OPIU1SUP RC (10:38)
[2020-10-09] MEDS ORDERED: PHEN-640 PO (11:08)
[2020-10-09] MEDS ORDERED: CIPR-226 PO (11:08)
--- NOTE | 2020-10-09 11:26 | Anesthesia-General Post-Op ---
General Patient Condition Mental Status/LOC: Same as Preop Cardiovascular: Satisfactory Nausea/Vomiting: Absent Respiratory: Satisfactory Pain: Controlled Complications: Absent Post Op Complications Complications None Follow Up Care/Instructions Patient Instructions None needed. Anesthesia/Patient Condition Patient Condition Patient was seen after the procedure and she was doing well, no complaints, stable vital signs, no apparent adverse anesthesia problems. HOSSEIN LOBO 8, 2021 11:26
[2020-10-09] MEDS ORDERED: VASOPRESSIN INJECTION 20 UNIT in NS (IVPB) 100 ML IV SCH (12:00)
== END 2020-10-09 13:00 | disposition home or self-care (01) ==
LOC: SDC 06:14
PROVIDERS: ATTEND Obstetrics & Gynecology
DX: N39.3 Stress incontinence (female) (male) (principal); K21.9 Gastro-esophageal reflux disease without esophagitis; F31.9 Bipolar disorder, unspecified; Z82.49 Family history of ischemic heart disease and other diseases of the circulatory system; Z79.891 Long term (current) use of opiate analgesic; Z79.899 Other long term (current) drug therapy; Z90.710 Acquired absence of both cervix and uterus; Z98.51 Tubal ligation status; Z80.3 Family history of malignant neoplasm of breast
CPT/HCPCS: 57288; 81000; 85025; 87081; C1771; 36415

== ENCOUNTER 2020-11-26 09:00 | Outpatient (CLI) | payer OTHER ==
[~2020-11-26] VITALS: Ht 152.4 cm; Wt 81.8 kg
[~2020-11-26 09:00] MED LIST changes: +ACET-168 PO; +CIPR-226 PO; +DOCU-143 PO; +IBUP-1773 PO; +OPIU1SUP RC; +OXC5T PO
== END 2020-11-26 14:27 | disposition home or self-care (01) ==
LOC: PREOP 09:00
PROVIDERS: ATTEND Obstetrics & Gynecology
DX: Z01.818 Encounter for other preprocedural examination (principal)

== ENCOUNTER 2020-11-27 10:25 | Day surgery (SDC) | payer OTHER ==
[~2020-11-27] VITALS: Ht 152.4 cm; Wt 81.8 kg
[2020-11-27] VITALS (7 sets, daily range): BP systolic 107–137; BP diastolic 65–87
[2020-11-27] MEDS ORDERED: metroNIDAZOLE 500MG/100ML IVPB 100 ML IV ONE (10:45)
[2020-11-27] MEDS ORDERED: ceFAZolin INJECTION 1,000 MG in WATER (STERILE) FOR INJECTION 10 ML IV ONE (10:45)
[2020-11-27] MEDS ORDERED: LACTATED RINGERS 1,000 ML IV PRN (10:45)
[2020-11-27] MEDS ORDERED: MIDAZOLAM 2 MG/2 ML (VERSED) VIAL ONE (11:02)
[2020-11-27] MEDS ORDERED: PROPOFOL INJECTION 50 ML IV ONE ×2 (11:02→13:29)
[2020-11-27] MEDS ORDERED: fentaNYL INJ 100 MCG/2 ML AMP ONE (11:02)
[2020-11-27] MEDS ORDERED: FAMOTIDINE 20MG/2ML IV (PEPCID) IVP ONE (11:45)
[2020-11-27] MEDS ORDERED: SCOPOLAMINE 1.5 MG (TRANSDERM-SCOP) PATCH TD ONE (11:45)
[2020-11-27] MEDS ORDERED: ONDANSETRON 4 MG/2 ML (SDV) Z0FRAN IVP ONE (11:45)
[2020-11-27] MEDS ORDERED: NS (IVPB) 0 ML ONE (12:18)
[2020-11-27] MEDS ORDERED: VASOPRESSIN INJECTION 20 UNIT/ML VIAL ONE (12:18)
[2020-11-27] MEDS ORDERED: ESTRADIOL VAGINAL CREAM 42.5 GM (ESTRACE) VG ONE (12:18)
--- NOTE | 2020-11-27 12:39 | Progress Note-Pre Operative ---
Pre-Operative Progress Note H&P Reviewed The H&P was reviewed, patient examined and no changes noted. Date Seen by Provider: Nov 27, 2020 Time Seen by Provider: 12:45 Date H&P Reviewed: Nov 27, 2020 Time H&P Reviewed: 12:45 Pre-Operative Diagnosis: separation of vaginal incision, pain HEATHER MOONEY DO Nov 27, 2020 12:39
[2020-11-27] MEDS ORDERED: LIDOCAINE/EPI 1%-1:100,000 (XYLOCAINE) 20ML ONE (13:06)
--- NOTE | 2020-11-27 13:24 | Anesthesia-General Post-Op ---
General Patient Condition Mental Status/LOC: Same as Preop Cardiovascular: Satisfactory Nausea/Vomiting: Absent Respiratory: Satisfactory Pain: Controlled Complications: Absent Post Op Complications Complications None Follow Up Care/Instructions Patient Instructions None needed. Anesthesia/Patient Condition Patient Condition Patient is doing well, no complaints, stable vital signs, no apparent adverse anesthesia problems. No complications reported per nursing. CARLOS POTTS CRNA Nov 27, 2020 13:24
[2020-11-27] MEDS ORDERED: LIDOCAINE PF 2% 5 ML (XYLOCAINE) VIAL ONE (13:29)
[2020-11-27] MEDS ORDERED: KETOROLAC 30 MG/ML VIAL ONE (13:40)
--- NOTE | 2020-11-27 13:43 | Operative Report ---
Operative Report Date of Procedure/Surgery Nov 27, 2020 Surgeon (s) HEATHER MOONEY DO Towel Stretcher (s): NA Post-Operative Diagnosis exposed pubovaginal mesh Procedure Performed revision of incision cystocsopy Description of Procedure Anesthesia Type: MAC Estimated blood loss (mL): none Specimen(s) collected/removed NA Description of the Procedure With informed consent the patient was taken to the Operating room where MAC anesthesia was found to be adequate. She was then prepped and draped in the usual sterile fashion in the dorsal lithotomy position. Qureshi catheter was used to drain the bladder of clear yellow urine. This was eventually removed for cystoscopy. Initially the pubovaginal sling could not be felt nor visualized, but the patient was placed into a modified lithotomy position and at this point I could see a tiny loop of suture or mesh protruding from the vaginal epithelium. I injected the area around this with 1% lidocaine with epinephrine. I then used an Allis to retract to this area and undermined to the tissue overlying the mesh. There appeared to be a tiny buckle in the mesh. At this point I opted to excise the buckled area to allow it to lay flat and not expose under the tissue. Once this was excised. I then reclosed the vaginal epithelium over the top of this. I utilized 4-0 Vicryl to close the tissue. Vaginal estrogen was placed in the vagina. The patient was then repositioned for cystoscopy. A diagnostic cystoscopy was done revealing no abnormal bladder tissue and no mesh in the bladder. The patient was now awakened and taken to recovery room in stable condition. Sponge lap needle and instrument counts were correct x2 Findings of the Procedure small area of exposed mesh Allergies and Home Medications Allergies Coded Allergies: Iodinated Contrast Media (Verified Allergy, Intermediate, 11/27/20) MOUTH ITCHING, HIVES Home Medications Lamotrigine 150 Mg Tablet, 150 MG PO DAILY, (Reported) Patient Home Medication List Home Medication List Reviewed: Yes HEATHER MOONEY DO Nov 27, 2020 13:43
--- NOTE | 2020-11-27 13:45 | Discharge Inst-Women's Service ---
Discharge Inst-Women's Serv Depart Medication/Instructions New, Converted or Re-Newed RX: Other (no new rx) Instructions use a small amount of estrogen cream nightly Final Diagnosis exposure of vaginal mesh (tiny area showing) Problems Reviewed?: Yes Consults/Follow Up Additional Follow Up: Yes (1-2 weeks for follow up) Activity Activity: Activity as Tolerated Driving Instructions: No Driving for 24 Hours NO SMOKING: NO SMOKING Nothing Inside Vagina: No Douching, No [place], No Tampons Diet Discharge Diet: No Restrictions Symptoms to Report to : Fever Over 101 Degrees F, Urination Difficulty, Vaginal Bleeding Increase, Vaginal Discharge Foul For Any Problems or Questions: Contact Your Physician HEATHER MOONEY DO Nov 27, 2020 13:45
[2020-11-27] MEDS ORDERED: morphine INJ 10 MG/ML 1ML (SYR OR VIAL) IVP ONE (14:00)
[2020-11-27] MEDS ORDERED: ONDANSETRON 4 MG/2 ML (SDV) Z0FRAN IVP PRN (14:00)
== END 2020-11-27 14:55 | disposition home or self-care (01) ==
LOC: SDC 10:25 → EDSTATUS 12:00 → SDC 14:55
PROVIDERS: ATTEND Obstetrics & Gynecology
DX: T83.721A Exposure of implanted vaginal mesh into vagina, initial encounter (principal); Z79.899 Other long term (current) drug therapy; Z83.3 Family history of diabetes mellitus; Z90.710 Acquired absence of both cervix and uterus
CPT/HCPCS: 87081

== ENCOUNTER → 2021-09-04 | Outpatient (CLI) | payer OTHER | LOC: LABNPT 16:28 | PROVIDERS: ATTEND Obstetrics & Gynecology | DX: N89.8 Other specified noninflammatory disorders of vagina (principal) | CPT/HCPCS: 87070; 87077; 87088; 87205 ==

== ENCOUNTER → 2021-09-12 | Outpatient (CLI) | payer OTHER ==
--- NOTE | 2021-09-12 15:09 | Diagnostic Imaging Report ---
INDICATION: Right elbow pain COMPARISON: None. FINDINGS: 3 views of the right elbow show no fractures, dislocations, or other acute bony abnormalities identified. Joint spaces are well maintained throughout. The soft tissues appear unremarkable. No radiopaque foreign bodies are identified. IMPRESSION: No acute fractures or dislocations of the right elbow. Dictated by: Dictated on workstation # [id number]
== END ==
LOC: ORTHO 14:37
PROVIDERS: ATTEND Orthopaedic Surgery
DX: M25.521 Pain in right elbow (principal)
CPT/HCPCS: 20605; 73080; G0463

== ENCOUNTER → 2022-01-02 | Outpatient (CLI) | payer OTHER | LOC: ORTHO 10:00 | PROVIDERS: ATTEND Orthopaedic Surgery | DX: M77.11 Lateral epicondylitis, right elbow (principal) | CPT/HCPCS: 20551 ==

== ENCOUNTER → 2022-01-27 | Outpatient (CLI) | payer OTHER ==
--- NOTE | 2022-01-27 18:08 | Diagnostic Imaging Report ---
PROCEDURE: MRI right joint upper extremity without contrast. TECHNIQUE: Multiplanar, multisequence non contrast-enhanced MRI of the right upper extremity was accomplished. INDICATION: Pain in the medial right elbow and forearm, felt a pop. COMPARISON: Radiographs from 09/12/2021 FINDINGS: No acute fracture is seen in the right elbow. Alignment appears normal. There is a small elbow joint effusion. The ulnar collateral ligament is intact. The radial collateral ligament complex appears to be intact. There is a near complete tear at the origin of the common extensor tendon. There is surrounding edema and fluid. The origin of the common flexor tendon appears intact. The biceps and brachialis tendons appear to be intact. The triceps tendon is intact. The ulnar nerve is normal in course and signal. The median nerve is unremarkable. No focal muscular atrophy is seen. No soft tissue masses or fluid collections are seen. IMPRESSION: 1. Near-complete tear at the origin of the common flexor tendon. 2. Small right elbow joint effusion. Dictated by: Dictated on workstation # [id number]
== END ==
LOC: RAD 14:02
PROVIDERS: ATTEND Orthopaedic Surgery
DX: M77.11 Lateral epicondylitis, right elbow (principal); S61.411A Laceration without foreign body of right hand, initial encounter
CPT/HCPCS: 73221

== ENCOUNTER → 2022-01-30 | Outpatient (CLI) | payer OTHER ==
[~2022-01-30] MED LIST changes: +ACET325T38 PO; +CETI10TA17 PO; +CYCL10TA25 PO; +FAMO-274 PO; +LAMO200T5 PO; +MULT-974 PO; +SEMA0.25 SQ; +[UNRECOGNIZED DRUG - OTHER]
== END ==
LOC: ORTHO 09:07
PROVIDERS: ATTEND Orthopaedic Surgery
DX: M77.11 Lateral epicondylitis, right elbow (principal)
CPT/HCPCS: 99213

== ENCOUNTER 2022-02-03 05:38 | Outpatient (CLI) | payer SELFPAY ==
[~2022-02-03] VITALS: Ht 152.4 cm; Wt 90.1 kg
[~2022-02-03 05:38] MED LIST changes: -ACET325T38 PO; -CETI10TA17 PO; -CYCL10TA25 PO; -FAMO-274 PO; -LAMO200T5 PO; -MULT-974 PO; -SEMA0.25 SQ; -[UNRECOGNIZED DRUG - OTHER]
[2022-02-04] MEDS ORDERED: FAMO-274 PO (15:18)
[2022-02-04] MEDS ORDERED: ACET325T38 PO (15:18)
[2022-02-04] MEDS ORDERED: CETI10TA17 PO (15:18)
[2022-02-04] MEDS ORDERED: MULT-974 PO (15:18)
[2022-02-04] MEDS ORDERED: CYCL10TA25 PO (15:18)
[2022-02-04] MEDS ORDERED: [UNRECOGNIZED DRUG - OTHER] (15:18)
[2022-02-04] MEDS ORDERED: LAMO200T5 PO (15:18)
[2022-02-04] MEDS ORDERED: SEMA0.25 SQ (15:18)
== END 2022-02-04 15:31 | disposition home or self-care (01) ==
LOC: PREOP 05:38
PROVIDERS: ATTEND Orthopaedic Surgery
DX: Z01.818 Encounter for other preprocedural examination (principal)

== ENCOUNTER 2022-02-10 08:47 | Day surgery (SDC) | payer OTHER ==
[~2022-02-10] VITALS: Ht 152.4 cm; Wt 90.1 kg
[2022-02-10] VITALS (11 sets, daily range): BP systolic 116–182; BP diastolic 77–99
[~2022-02-10 08:47] MED LIST changes: +ACET325T38 PO; +CETI10TA17 PO; +CYCL10TA25 PO; +FAMO-274 PO; +LAMO200T5 PO; +MULT-974 PO; +SEMA0.25 SQ; +[UNRECOGNIZED DRUG - OTHER]
[2022-02-10] MEDS ORDERED: ceFAZolin INJECTION 2,000 MG in NS (IVPB) 50 ML IV ONE (09:00)
[2022-02-10] MEDS: LACTATED RINGERS 1,000 ML IV PRN ×2 (09:20→11:33)
[2022-02-10] MEDS ORDERED: FAMOTIDINE 20MG/2ML IV (PEPCID) ONE (10:11)
[2022-02-10] MEDS ORDERED: SCOPOLAMINE 1.5 MG (TRANSDERM-SCOP) PATCH ONE (10:11)
[2022-02-10] MEDS ORDERED: ONDANSETRON 4 MG/2 ML (SDV) Z0FRAN ONE ×2 (10:11→10:15)
[2022-02-10] MEDS ORDERED: LIDOCAINE/EPI 2% 1:200,00 (XYLOCAINE) 10 ML VIAL ONE (10:14)
[2022-02-10] MEDS ORDERED: proPOfol 200 MG/20 ML (DIPRIVAN) VIAL IV ONE (10:15)
[2022-02-10] MEDS ORDERED: ONDANSETRON 4 MG/2 ML (SDV) Z0FRAN IV ONE (10:15)
[2022-02-10] MEDS ORDERED: FAMOTIDINE 20MG/2ML IV (PEPCID) IV ONE (10:15)
[2022-02-10] MEDS ORDERED: MIDAZOLAM 2 MG/2 ML (VERSED) VIAL IV ONE (10:15)
[2022-02-10] MEDS ORDERED: SCOPOLAMINE 1.5 MG (TRANSDERM-SCOP) PATCH TOP ONE (10:15)
[2022-02-10] MEDS ORDERED: LIDOCAINE PF 2% 5 ML (XYLOCAINE) VIAL ONE (10:15)
[2022-02-10] MEDS ORDERED: fentaNYL INJ 100 MCG/2 ML AMP ONE (10:16)
[2022-02-10] MEDS ORDERED: MIDAZOLAM 2 MG/2 ML (VERSED) VIAL ONE (10:16)
--- NOTE | 2022-02-10 10:58 | Progress Note-Pre Operative ---
Pre-Operative Progress Note Date of Available H&P: Jan 30, 2022 Date H&P Reviewed: Feb 10, 2022 Time H&P Reviewed: 10:45 History & Physical: H&P Reviewed, Patient Examed, No changes noted Pre-Operative Diagnosis: Right Lateral Epicondylitis with Common Extensor Tendon Tear CESAR VANEGAS MD Feb 10, 2022 10:58
[2022-02-10] MEDS ORDERED: SEVOFLURANE (ULTANE) 15 ML INHAL SOLN ONE (11:48)
--- NOTE | 2022-02-10 11:53 | Operative Report - Ortho ---
Operative Report Surgeon (s)/Free Lance Artist (s) Surgeon CESAR VANEGAS MD Free Lance Artist n/a Pre-Operative Diagnosis Right Lateral Epicondylitis with Common Extensor Tendon Tear Post-Operative Diagnosis same Operative Report Date of Procedure: Feb 10, 2022 Name of Procedure Performed: Debridement of Right Lateral Epicondyle with Repair of Common Extensor Description & Findings After obtaining informed consent and marking the patient in the preop holding area, the patient was administered IV antibiotics. Patient was taken to the OR and general anesthesia was induced. The right upper extremity was prepped and draped. Surgical timeout was taken. Incision was made from the anterolateral edge of the lateral epicondyle. Blunt dissection was carried down to fascia. Fascia was divided and dissection was carried down to the lateral epicondyle. Rongeur was used to removed degenerative tendon tissue and used to debride the edge of the bone. 1.4 mm Iconix anchor was inserted in the lateral epicondyle. Sutures were passed through the common extensor. Sutures were tied with good approximation and compression to the debrided area of bone. Wound was irrigated with normal saline. Subcutaneous layer was repaired with 3-0 vicryl. Skin was repaired with 3-0 nylon. Wound was dressed with xerform, 4x4s, jabari, cast padding, and rochelle wrap. Patient tolerated the procedure well and was stable to the recovery room. Anesthesia Type General Estimated Blood Loss minimal Specimen(s) collected/removed None CESAR VANEGAS MD Feb 10, 2022 11:53
[2022-02-10] MEDS ORDERED: OXC5T PO (11:56)
[2022-02-10] MEDS ORDERED: morphine INJ 10 MG/ML 1ML (SYR OR VIAL) IVP ONE (12:00)
[2022-02-10] MEDS ORDERED: HYDROmorphone 2 MG/ML VIAL (DILAUDID) IV ONE (12:00)
[2022-02-10] MEDS ORDERED: ONDANSETRON 4 MG/2 ML (SDV) Z0FRAN IVP PRN (12:00)
[2022-02-10] MEDS ORDERED: LIDOCAINE/EPI 2% 1:200,00 (XYLOCAINE) 10 ML VIAL INJ ONE (12:02)
--- NOTE | 2022-02-10 14:16 | Anesthesia-General Post-Op ---
General Patient Condition Mental Status/LOC: Same as Preop Cardiovascular: Satisfactory Nausea/Vomiting: Absent Respiratory: Satisfactory Pain: Controlled Complications: Absent Post Op Complications Complications None Follow Up Care/Instructions Patient Instructions None needed. Anesthesia/Patient Condition Patient Condition Patient was doing well after the procedure in PACU with no complaints, stable vital signs, no apparent adverse anesthesia problems. No complications reported per nursing. HOSSEIN LOBO DO Feb 10, 2022 14:16
== END 2022-02-10 14:00 | disposition home or self-care (01) ==
LOC: SDC 08:47
PROVIDERS: ATTEND Orthopaedic Surgery
DX: M77.11 Lateral epicondylitis, right elbow (principal); Z87.891 Personal history of nicotine dependence; E66.9 Obesity, unspecified; Z68.38 Body mass index [BMI] 38.0-38.9, adult
CPT/HCPCS: 24359; 87081; C1713

== ENCOUNTER → 2022-03-13 | Outpatient (CLI) | payer OTHER | LOC: ORTHO 11:00 | PROVIDERS: ATTEND Orthopaedic Surgery | DX: Z47.89 Encounter for other orthopedic aftercare (principal) ==

== ENCOUNTER → 2022-04-15 | Outpatient (CLI) | payer OTHER | LOC: ORTHO 11:08 | PROVIDERS: ATTEND Orthopaedic Surgery | DX: Z47.89 Encounter for other orthopedic aftercare (principal) ==

== ENCOUNTER 2022-05-01 11:12 | Outpatient (RCR) | payer OTHER | END 2022-05-03 | disposition home or self-care (01) | PROVIDERS: ATTEND Orthopaedic Surgery | DX: Z09 Encounter for follow-up examination after completed treatment for conditions other than malignant neoplasm (principal); Z98.890 Other specified postprocedural states ==

== ENCOUNTER 2022-05-06 12:26 | Outpatient (RCR) | payer OTHER | END 2022-06-03 16:19 | disposition home or self-care (01) | PROVIDERS: ATTEND Orthopaedic Surgery | DX: Z09 Encounter for follow-up examination after completed treatment for conditions other than malignant neoplasm (principal); R53.1 Weakness ==

== ENCOUNTER → 2022-05-20 | Outpatient (CLI) | payer OTHER | LOC: ORTHO 15:03 | PROVIDERS: ATTEND Orthopaedic Surgery | DX: Z09 Encounter for follow-up examination after completed treatment for conditions other than malignant neoplasm (principal) ==

== ENCOUNTER → 2022-06-03 | Outpatient (CLI) | payer OTHER | LOC: ORTHO 15:35 | PROVIDERS: ATTEND Orthopaedic Surgery | DX: S56.811A Strain of other muscles, fascia and tendons at forearm level, right arm, initial encounter (principal); X58.XXXA Exposure to other specified factors, initial encounter ==

== ENCOUNTER → 2022-08-05 | Outpatient (CLI) | payer OTHER | LOC: ORTHO 15:10 | PROVIDERS: ATTEND Orthopaedic Surgery | DX: S56.911A Strain of unspecified muscles, fascia and tendons at forearm level, right arm, initial encounter (principal); X58.XXXA Exposure to other specified factors, initial encounter ==

== ENCOUNTER → 2022-09-08 | Outpatient (CLI) | payer OTHER ==
--- NOTE | 2022-09-09 12:01 | Diagnostic Imaging Report ---
PROCEDURE: MRI right joint upper extremity without contrast. TECHNIQUE: Multiplanar, multisequence non contrast-enhanced MRI of the right elbow was accomplished. INDICATION: Right elbow pain COMPARISON: MRI of the elbow from 01/27/2022 Findings: LIGAMENTS: By non-arthrogram imaging, the medial and lateral ligamentous complexes of the elbow are intact. TENDONS AND MUSCLES: The distal biceps, brachialis and triceps tendons are intact. The origin of the medial common flexor tendons is normal. High-grade partial-thickness tear of the common extensor origin is similar in appearance. There is no tendon retraction. The musculature of the forearm and distal upper arm is normal in bulk. BONES AND CARTILAGE: No fracture. Articular cartilage of the elbow is preserved. No osteochondral lesion. SOFT TISSUES: No significant elbow joint effusion. No olecranon or bicipitoradial bursitis. The ulnar nerve is normal in configuration without mass effect in the cubital tunnel. Normal fat planes around the median and radial nerves at the level of the elbow. IMPRESSION: 1. Unchanged near complete tear of the common extensor tendon origin from the lateral epicondyle. No tendon retraction has developed. Dictated by: Dictated on workstation # [id number]
== END ==
LOC: RAD 14:30
PROVIDERS: ATTEND Orthopaedic Surgery
DX: S56.811D Strain of other muscles, fascia and tendons at forearm level, right arm, subsequent encounter (principal)
CPT/HCPCS: 73221

== ENCOUNTER → 2022-09-24 | Outpatient (CLI) | payer OTHER | LOC: ORTHO 10:41 | PROVIDERS: ATTEND Orthopaedic Surgery | DX: M77.11 Lateral epicondylitis, right elbow (principal); E66.9 Obesity, unspecified ==

== ENCOUNTER 2022-10-31 05:27 | Outpatient (CLI) | payer SELFPAY ==
[~2022-10-31] VITALS: Ht 152.4 cm; Wt 73.5 kg
[2022-10-31] MEDS ORDERED: TPR25T PO (09:26)
[2022-10-31] MEDS ORDERED: LIRA0.6P3 SQ (09:26)
== END 2022-10-31 09:47 | disposition home or self-care (01) ==
LOC: PREOP 05:27
PROVIDERS: ATTEND Orthopaedic Surgery
DX: Z01.818 Encounter for other preprocedural examination (principal)